=== PATIENT | female | born 1930 | race Caucasian/White ===

== ENCOUNTER 2017-01-06 15:42 | Emergency (ER) | payer MEDICARE, BC ==
[~2017-01-06] VITALS: Ht 167.6 cm; Wt 90.0 kg
[~2017-01-06 15:42] MED LIST: ASPI81TA81 PO; CALC0.25 PO; DETR2CAP PO; HYDR25TA35 PO; LACTCAP8 PO; PHEN1LIQ60 PO; TAZT300C PO; ZOCO10TA PO; ZOSTINJ SQ
[2017-01-06 15:44] VITALS: BP 132/60; PULSE 82; RESP 24; TEMP 98.1; O2SAT 94
--- NOTE | 2017-01-06 17:18 | RADRPT ---
EXAM DATE/TIME: 01/06/2017 16:37 [facility] COMPARISON: No previous studies available for comparison. INDICATIONS : Right hip pain from fall RADIATION DOSE: 20.56 CTDIvol (mGy) MEDICAL HISTORY : Cardiovascular disease. Hypertension. Pancreatitis.Renal cancer. SURGICAL HISTORY : Cholecystectomy. Nephrectomy, left. ENCOUNTER: Initial ACUITY: 1 day PAIN SCALE: 4/10 LOCATION: Right hip TECHNIQUE: Volumetric scanning of the hip was performed. Using automated exposure control and adjustment of the mA and/or kV according to patient size, radiation dose was kept as low as reasonably achievable to o btain optimal diagnostic quality images. FINDINGS: BONES: No evidence of fracture. Alignment is within normal limits. JOINTS: No evidence of joint narrowing or effusion. 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 There is mild to moderate stenosis at the L4-L5 and L5-S1 levels SOFT TISSUES: Muscles, tendons and neurovascular structures are grossly unremarkable. No evidence of mass, organize d fluid collection, or foreign body. Aortic stent graft is present CONCLUSION: 1. There is no evidence of acute fracture. 2. Mild to moderate stenosis at L4-L5 and L5-S1 Pablo Spencer MD on January 06, 2017 at 17:13 Board Certified Radiologist. This report was verified electronically.
--- NOTE | 2017-01-06 17:20 | PD ---
HPI Chief Complaint: Fall Time Seen by Provider: 16:03 Travel History International Travel<30 days: No Contact w/Intl Traveler<30days: No Traveled to known affect area: No History of Present Illness HPI 86 yo woman who presents to the ER complaining or right hip pain. SHe endorses a fall. She lives at home with family. THey did not hear or witness a fall. Symptoms started about 2-3 days ago. THey went to urgent care where they had an xray that showed possible right hip fracture, sent in for CT. History Past Medical History Narrative Medical heart prob kidney disease htn memory problems Tetanus Vaccination: > 5 Years Influenza Vaccination: Yes Menopausal: Yes Social History Alcohol Use: No Tobacco Use: No Allergies-Medications (Allergen,Severity, Reaction): Coded Allergies: No Known Allergies (Unverified , 01/06/17) Reported Meds & Prescriptions Reported Meds & Active Scripts Active Detrol LA (Tolterodine Tartrate) 2 Mg Cap 2 Mg PO DAILY Hydralazine (Hydralazine HCl) 25 Mg Tab 50 Mg PO TID Take with a meal. HOLD if systolic BP < 130 Reported Aspir-81 (Aspirin) 81 Mg Tabdr 1 Tab PO DAILY Calcitriol 0.25 Mcg Cap 0.25 Mcg PO DAILY Zocor (Simvastatin) 10 Mg Tab 10 Mg PO DAILY Taztia Xt (Diltiazem ER 24 HR) 300 Mg Caper 300 Mg PO DAILY Review of Systems Except as stated in HPI: all other systems reviewed are Neg Physical Exam Narrative GENERAL: Well-appearing 86-year-old woman, no acute distress. SKIN: Focused skin assessment warm/dry. CARDIOVASCULAR: Regular rate and rhythm. No murmur appreciated. RESPIRATORY: No accessory muscle use. Clear to auscultation. Breath sounds equal bilaterally. GASTROINTESTINAL: Abdomen soft, non-tender, nondistended. Hepatic and splenic margins not palpable. MUSCULOSKELETAL: No obvious deformities. Right hip taken to the full range of motion without any significant discomfort or limitation. No palpable tenderness. NEUROLOGICAL: Awake and alert. No obvious cranial nerve deficits. Motor grossly within normal limits. Normal speech. PSYCHIATRIC: Appropriate mood and affect; insight and judgment normal. Data Data Last Documented VS Vital Signs Date Time Temp Pulse Resp B/P Pulse Ox O2 Delivery O2 Flow Rate FiO2 01/06/17 16:01 16 99 Room Air 01/06/17 15:44 98.1 82 132/[address] Hip W/O Contrast (01/06/17 ) MDM Medical Decision Making Medical Screen Exam Complete: Yes Emergency Medical Condition: Yes Interpretation(s) CT right hip: No fracture. Mild to moderate stenosis at L4-L5, L5-S1. Differential Diagnosis Right hip fracture, contusion, other Narrative Course Medical decision making INITIAL: Is showing presents emergency department complaining of right pain, possible fracture on outpatient imaging, looks otherwise well. Exam is remarkably normal. He states she has more pain when she tries to ambulate. We' ll check CT. Diagnosis Primary Impression: Right hip pain Additional Instructions: Follow-up with your primary doctor if symptoms persist beyond one to 2 days. Use Tylenol if needed for pain. Return to the emergency department for any new or worsening symptoms. Med/Other Pt SpecificInfo: No Change to Meds Disposition: 01 DISCHARGE HOME Condition: Stable Tyrel Adams MD January 06, 2017 17:19
[2017-01-06 17:40] VITALS: BP 126/81; TEMP 97.8
[2017-01-25] MEDS ORDERED: TRAM50TA PO ×2 (11:36→11:37)
== END 2017-01-06 17:40 | disposition home or self-care (01) ==
LOC: NEPC 15:42
DX: M25.551 Pain in right hip (principal); I10 Essential (primary) hypertension; N28.9 Disorder of kidney and ureter, unspecified; Z86.79 Personal history of other diseases of the circulatory system; W19.XXXA Unspecified fall, initial encounter
CPT/HCPCS: 73700

== ENCOUNTER 2017-01-08 22:14 | Observation (INO) | payer MEDICARE, BC ==
[~2017-01-08] VITALS: Ht 165.1 cm; Wt 85.7 kg
[~2017-01-08 22:14] MED LIST changes: -LACTCAP8 PO; -PHEN1LIQ60 PO
[2017-01-08 22:16] VITALS: BP 139/65; PULSE 69; RESP 16; TEMP 97.6; O2SAT 98
[2017-01-08 22:46] VITALS: BP 129/61; PULSE 62; RESP 18; O2SAT 96
--- NOTE | 2017-01-08 22:55 | PD ---
HPI Chief Complaint: Altered Mental Status Time Seen by Provider: 22:51 Travel History International Travel<30 days: No Contact w/Intl Traveler<30days: No Traveled to known affect area: No History of Present Illness HPI 86-year-old female with history of previous kidney cancer status post nephrectomy, stage IV kidney disease, hypertension, AAA, COPD, presents to the ER today brought in by her family because she is looking more disoriented this evening. Her son states that she was wandering around, did not want know where she was. The symptoms seems to have subsided by time she got to the ER. She is currently denying a chest pains, trouble breathing, fevers, vomiting, abdominal pains, shortness of breath, or any other issues. They deny any new medications. Modifying Factors: None Associated Signs & Symptoms: Disorientation episode Risk Factors: Elderly PFSH Past Medical History AAA: Yes Arthritis: Yes (BACK AND KNEE) Autoimmune Disease: No Cancer: Yes (left kidney cancer- removed) Cardiovascular Problems: Yes High Cholesterol: Yes (controlled on meds) Chemotherapy: No Chest Pain: Yes Congestive Heart Failure: No COPD: Yes Diabetes: No Diminished Hearing: No Gastrointestinal Disorders: Yes Genitourinary: Yes Hypertension: Yes Immune Disorder: No Medical other: Yes (stage IV kidney disease) Musculoskeletal: Yes Neurologic: Yes (MEMORY LOSS) Psychiatric: No Reproductive: No Respiratory: No Integumentary: No Pancreatitis: Yes Pneumonia: Yes Radiation Therapy: No Renal Failure: Yes (stage [address] Joyner) Seizures: No Thyroid Disease: No Tetanus Vaccination: < 5 Years Influenza Vaccination: Yes Menopausal: Yes Past Surgical History Abdominal Aneurysm Repair: Yes Abdominal Surgery: Yes Cardiac Surgery: Yes (abd anurysm 2007) Cholecystectomy: Yes Eye Surgery: Yes (lasik surgery both eyes) Gynecologic Surgery: No Joint Replacement: Yes Other Surgery: Yes (Lt kidney due to CA) Family History Family Hypercholesterolemia: Yes (DAUGHTER) Social History Alcohol Use: No Tobacco Use: No (35 yrs ago) Substance Use: No Allergies-Medications (Allergen,Severity, Reaction): Coded Allergies: No Known Allergies (Unverified , 01/06/17) Reported Meds & Prescriptions Reported Meds & Active Scripts Active Detrol LA (Tolterodine Tartrate) 2 Mg Cap 2 Mg PO DAILY Hydralazine (Hydralazine HCl) 25 Mg Tab 50 Mg PO TID Take with a meal. HOLD if systolic BP < 130 Reported Aspir-81 (Aspirin) 81 Mg Tabdr 1 Tab PO DAILY Calcitriol 0.25 Mcg Cap 0.25 Mcg PO DAILY Zocor (Simvastatin) 10 Mg Tab 10 Mg PO DAILY Taztia Xt (Diltiazem ER 24 HR) 300 Mg Caper 300 Mg PO DAILY Review of Systems Except as stated in HPI: all other systems reviewed are Neg Physical Exam Narrative GENERAL: Well-developed pleasant elderly white female patient who currently is not in acute distress. Awake, alert, oriented 3. SKIN: Focused skin assessment warm/dry. HEAD: Atraumatic. Normocephalic. EYES: Pupils equal and round. No scleral icterus. No injection or drainage. ENT: No nasal bleeding or discharge. Mucous membranes pink and moist. NECK: Trachea midline. No JVD. CARDIOVASCULAR: Regular rate and rhythm. No murmur appreciated. RESPIRATORY: No accessory muscle use. Clear to auscultation. Breath sounds equal bilaterally. GASTROINTESTINAL: Abdomen soft, non-tender, nondistended. Hepatic and splenic margins not palpable. MUSCULOSKELETAL: No obvious deformities. No clubbing. No cyanosis. No edema. NEUROLOGICAL: Awake and alert. No obvious cranial nerve deficits. Motor grossly within normal limits. Normal speech. PSYCHIATRIC: Appropriate mood and affect; insight and judgment normal. Data Data Last Documented VS Vital Signs Date Time Temp Pulse Resp B/P Pulse Ox O2 Delivery O2 Flow Rate FiO2 01/08/17 22:46 62 18 129/61 96 Room Air 01/08/17 22:16 97.6 Orders Electrocardiogram (01/08/17 22:51) Complete Blood Count With Diff (01/08/17 22:51) Comprehensive Metabolic Panel (01/08/17 22:51) Troponin I (01/08/17 22:51) Thyroid Stimulating Hormone (01/08/17 22:51) Urinalysis - C+S If Indicated (01/08/17 22:51) Ct Brain W/O Iv Contrast(Rout) (01/08/17 22:51) Blood Glucose (01/08/17 22:51) Ecg Monitoring (01/08/17 22:51) Iv Access Insert/Monitor (01/08/17 22:51) Oximetry (01/08/17 22:51) Sodium Chloride 0.9% Flush (Ns Flush) (01/08/17 23:00) Urine Culture (01/08/17 23:54) Admit Order (Ed Use Only) (01/09/17 01:19) Labs Laboratory Tests Test 01/08/17 01/08/17 23:02 23:54 White Blood Count 6.8 TH/MM3 Red Blood Count 4.14 MIL/MM3 Hemoglobin 12.1 GM/DL Hematocrit 37.0 % Mean Corpuscular Volume 89.5 FL Mean Corpuscular Hemoglobin 29.1 PG Mean Corpuscular Hemoglobin 32.6 % Concent Red Cell Distribution Width 13.8 % Platelet Count 148 TH/MM3 Mean Platelet Volume 9.6 FL Neutrophils (%) (Auto) 55.1 % Lymphocytes (%) (Auto) 25.1 % Monocytes (%) (Auto) 10.1 % Eosinophils (%) (Auto) 8.7 % Basophils (%) (Auto) 1.0 % Neutrophils # (Auto) 3.8 TH/MM3 Lymphocytes # (Auto) 1.7 TH/MM3 Monocytes # (Auto) 0.7 TH/MM3 Eosinophils # (Auto) 0.6 TH/MM3 Basophils # (Auto) 0.1 TH/MM3 CBC Comment DIFF FINAL Differential Comment Sodium Level 137 MEQ/L Potassium Level 3.7 MEQ/L Chloride Level 103 MEQ/L Carbon Dioxide Level 23.0 MEQ/L Anion Gap 11 MEQ/L Blood Urea Nitrogen 38 MG/DL Creatinine 2.13 MG/DL Estimat Glomerular Filtration 22 ML/MIN Rate Random Glucose 97 MG/DL Calcium Level 9.2 MG/DL Total Bilirubin 0.4 MG/DL Aspartate Amino Transf 14 U/L (AST/SGOT) Alanine Aminotransferase 17 U/L (ALT/SGPT) Alkaline Phosphatase 110 U/L Troponin I LESS THAN 0.02 NG/ML Total Protein 6.9 GM/DL Albumin 3.6 GM/DL Thyroid Stimulating Hormone 1.760 uIU/ML 3rd Gen Urine Color YELLOW Urine Turbidity CLEAR Urine pH 5.5 Urine Specific [place] 1.020 Urine Protein TRACE mg/dL Urine Glucose (UA) NEG mg/dL Urine Ketones NEG mg/dL Urine Occult Blood NEG Urine Nitrite NEG Urine Bilirubin NEG Urine Urobilinogen LESS THAN 2.0 MG/DL Urine Leukocyte Esterase SMALL Urine RBC 1 /hpf Urine WBC 1 /hpf Urine Squamous Epithelial 3 /hpf Cells Urine Bacteria RARE /hpf Urine Hyaline Casts 1 /lpf Microscopic Urinalysis Comment CATH-CULTURE IND MDM Medical Decision Making Medical Screen Exam Complete: Yes Emergency Medical Condition: Yes Medical Record Reviewed: Yes Interpretation(s) EKG shows NSR, no ST elevation or depression, and no arrhythmias. No significant T-wave inversions. Laboratory Tests Test 01/08/17 01/08/17 23:02 23:54 Platelet Count 148 TH/MM3 (150-450) Monocytes (%) (Auto) 10.1 % (0.0-8.0) Eosinophils (%) (Auto) 8.7 % (0.0-4.0) Eosinophils # (Auto) 0.6 TH/MM3 (0-0.4) Blood Urea Nitrogen 38 MG/DL (7-18) Creatinine 2.13 MG/DL (0.50-1.00) Estimat Glomerular Filtration 22 ML/MIN (>89) Rate Aspartate Amino Transf 14 U/L (15-37) (AST/SGOT) Troponin I LESS THAN 0.02 NG/ML (0.02-0.05) Urine Leukocyte Esterase SMALL (NEG) Urine Bacteria RARE /hpf (NONE) Last [address] 01/08/17 8051 Signed Impressions: Service Date/Time: Sunday, January 08, 2017 23:36 - CONCLUSION: 1. No acute findings. Cortical volume loss. Chronic white matter ischemic changes. Johan Montano MD Differential Diagnosis Altered mental status episodedehydration versus metabolic issues versus medication side effects versus TIA versus acute intracranial processes Narrative Course Patient has no current focal neurological deficits. She is not sure what happened. However, family states that she could not see for the episode and was disoriented. CT of the brain did not show any signs of acute intracranial processes. Lab work was otherwise unremarkable. At this point, my plan would be to admit her for further evaluation of altered mental status episode. Case was discussed with family practice resident service for admission. Diagnosis Primary Impression: Altered mental status Admitting Information Admitting Physician Requests: Admit Brooke Espinoza MD January 08, 2017 22:55
[2017-01-08] MEDS ORDERED: SODIUM CHLORIDE 0.9% FLUSH 5 ML FLUSH IV FLUSH PRN (23:00)
--- NOTE | 2017-01-08 23:43 | RADRPT ---
EXAM DATE/TIME: 01/08/2017 23:36 [facility] COMPARISON: No previous studies available for comparison. INDICATIONS : Altered mental status. RADIATION DOSE: 40.07 CTDIvol (mGy) MEDICAL HISTORY : Renal carcinoma. SURGICAL HISTORY : None. ENCOUNTER: Initial ACUITY: 1 day PAIN SCALE: 0/10 LOCATION: cranial TECHNIQUE: Multiple contiguous axial images were obtained of the head. Using automated exposure control and adj ustment of the mA and/or kV according to patient size, radiation dose was kept as low as reasonably a chievable to obtain optimal diagnostic quality images. FINDINGS: There is central and cortical atrophy with dilatation of ventricular and sulcal spaces. There is no parenchymal hemorrhage, acute infarction or mass lesion identified. There are no extra-axial fluid c ollections appreciated. The posterior fossa is unremarkable with midline fourth ventricle. The port ion of the orbits and paranasal sinuses visualized are unremarkable. CONCLUSION: 1. No acute findings. Cortical volume loss. Chronic white matter ischemic changes. Johan Montano MD on January 08, 2017 at 23:41 Board Certified Radiologist. This report was verified electronically.
[2017-01-09] VITALS (11 sets, daily range): BP systolic 136–181; BP diastolic 63–79; PULSE 62–69; RESP 18–19; TEMP 95–97.8; O2SAT 91–97
[2017-01-09 00:12] LABS: BACTERIA, URINE RARE /hpf; BLOOD, URINE NEG (NEG); GLUCOSE,URINE NEG (NEG); HYALINE CAST, URINE 1 /lpf (RARE); KETONE, URINE NEG (NEG); NITRITE,URINE NEG (NEG); PH, URINE 5.5 (5.0-8.5); SQUAMOUS EPITHELIAL CELL URINE 3 /hpf (0-5); URINE COLOR YELLOW (YELLW/STRAW)
[2017-01-09 00:13] LABS: COMMENT (UR) CATH-CULTURE IND; CULTURE IF INDICATED CATH CULTURE IND
[2017-01-09 00:14] LABS: AUTOMATED NEUTROPHIL # 3.8 TH/MM3 (1.8-7.7); BASOPHIL # 0.1 TH/MM3 (0-0.2); EOSINOPHIL # 0.6 TH/MM3 (0-0.4); EOSINOPHIL % 8.7 % (0.0-4.0); HEMO FLAGS DIFF FINAL; LYMPH % 25.1 % (9.0-44.0); LYMPHOCYTE # 1.7 TH/MM3 (1.0-4.8); MEAN CELL VOLUME 89.5 FL (80.0-100.0); MEAN CORPUSCULAR HEMOGLOBIN 29.1 PG (27.0-34.0); MEAN CORPUSCULAR HGB CONC 32.6 % (32.0-36.0); MONO % 10.1 % (0.0-8.0); NEUT % 55.1 % (16.0-70.0); PLATELET COUNT 148 TH/MM3 (150-450); RED BLOOD COUNT 4.14 MIL/MM3 (4.00-5.30); RED CELL DISTRIBUTION WIDTH 13.8 % (11.6-17.2); WHITE BLOOD COUNT 6.8 TH/MM3 (4.0-11.0)
[2017-01-09 00:25] LABS: ANION GAP 11 MEQ/L (5-15); AST (GOT) 14 U/L (15-37); BLOOD UREA NITROGEN 38 MG/DL (7-18); CHLORIDE 103 MEQ/L (98-107); GLOMERULAR FILTRATION RATE 22 ML/MIN (>89); POTASSIUM 3.7 MEQ/L (3.5-5.1); SODIUM (NA) 137 MEQ/L (136-145)
[2017-01-09 00:36] LABS: ALKALINE PHOSPHATASE 110 U/L (45-117); ALT (GPT) 17 U/L (10-53); TOTAL BILIRUBIN ADULT 0.4 MG/DL (0.2-1.0)
[2017-01-09] MEDS ORDERED: ASPIRIN 325 MG TAB PO ONE (02:00)
--- NOTE | 2017-01-09 02:08 | HHI.HP ---
[facility] Primary Care Physician Cain Krueger MD Admission Diagnosis AMS/TIA Diagnoses: International Travel<30 Days: No Contact w/Intl Traveler<30days: No Known Affected Area: No History of Present Illness Patient is an 86-year-old female with a PMH significant for A. fib, hypertension , COPD, CK-MB who presents after a 10 minute episode of bilateral vision loss at 10 PM on 01/08. History obtained from patient and her son. She is in bed at the onset of her symptoms, and reports bilateral blurry vision and disorientation. She is unsure if she had double vision. The son endorses that the patient stated "I can't see" was confused about where she was as well. The patient and patient's son deny any speech changes, focal weakness, or facial drooping. She has never had these symptoms before. The patient also denies any other symptoms such as chest pain, palpitations, shortness of breath at the time of symptoms as well as during interview. Prior to the episode, patient had a normal evening aside from a mild headache which was treated with Tylenol. The headache was not severe, are not new to her, and resolved with Tylenol. No syncope. Of note, patient was seen in the ED on 01/04 after possible fall affecting the right hip and knee. The son first noted the possible fall after the patient was complaining of pain in those areas, though a fall was unwitnessed and patient does not recall falling. She was seen at an urgent care prior to ED visit with initial concern for nondisplaced fracture. Patient was sent to the ED for CT of the hip to confirm fracture, which was not found on imaging. No labs were performed at that time. Patient sees Dr. Shepard (cardiology), [place] October 2016. No significant changes in management at that time. She also sees Dr. Joyner (nephrology). (Rakel Martinez MD R1) Review of Systems Constitutional: DENIES: Fatigue, Fever, Weight gain, Weight loss, Chills, Dizziness Eyes: COMPLAINS OF: Blurred vision, DENIES: Diplopia Ears, nose, mouth, throat: DENIES: Vertigo, Throat pain, Hoarseness, Toothache Respiratory: DENIES: Apneas, Cough, Snoring, Wheezing, Sputum production, Shortness of breath Cardiovascular: DENIES: Chest pain, Palpitations, Syncope Gastrointestinal: COMPLAINS OF: Diarrhea (on and off), DENIES: Abdominal pain , Black stools, Bloody stools, Constipation, Nausea, Vomiting, Difficulty Swallowing Genitourinary: COMPLAINS OF: Urinary incontinence (chronic), DENIES: Urinary frequency, Dysuria Musculoskeletal: DENIES: Muscle aches, Back pain, Neck pain Integumentary: DENIES: Pruritus, Rash Hematologic/lymphatic: DENIES: Bruising, Lymphadenopathy Neurologic: DENIES: Abnormal gait, Localized weakness Psychiatric: DENIES: Anxiety, Confusion, Mood changes, Depression, Hallucinations, Agitation (Rakel Martinez MD R1) Past Family Social History Past Medical History Atrial fibrillation First-degree heart block Hypertension 31 years COPD40 pack year history, quit 20 years ago Urinary incontinence Diverticulitis August 2016 CKD Past Surgical History Knee replacement bilateral Aortic aneurysm Renal cancerremoval left kidney 2009 Cholecystectomy, pancreatic pseudocyst drainage 04/2013 Reported Medications Tramadol when necessarylast use Wednesday Tylenol when necessary pain Reported Meds & Active Scripts Active Detrol LA (Tolterodine Tartrate) 2 Mg Cap 2 Mg PO DAILY Hydralazine (Hydralazine HCl) 25 Mg Tab 50 Mg PO TID Take with a meal. HOLD if systolic BP < 130 Reported Aspir-81 (Aspirin) 81 Mg Tabdr 1 Tab PO DAILY Calcitriol 0.25 Mcg Cap 0.25 Mcg PO DAILY Zocor (Simvastatin) 10 Mg Tab 10 Mg PO DAILY Taztia Xt (Diltiazem ER 24 HR) 300 Mg Caper 300 Mg PO DAILY (Rakel Martinez MD R1) Allergies: Coded Allergies: No Known Allergies (Unverified , 01/06/17) Family History Father: Heart attack age 68 Mother: natural causes Sister: Brain tumor Children: Healthy Social History Retired secretary book keeper Lives with son and daughter Tobacco: Quit 20 years ago, [id number] history EtOH: Occasional Illicit: Denies Ambulatory with occasional use of cane (Rakel Martinez MD R1) Physical Exam Vital Signs Vital Signs Date Time Temp Pulse Resp B/P Pulse Ox O2 Delivery O2 Flow Rate FiO2 01/08/17 22:46 62 18 129/61 96 Room Air 01/08/17 22:16 97.6 69 16 139/65 98 Physical Exam GENERAL: Patient is an elderly female wearing glasses, lying in bed in no apparent distress. She is alert, pleasant, joking. Son and daughter at bedside. SKIN: Warm and dry. No obvious rashes, ecchymoses, or lesions. HEAD: Normocephalic. No evidence of trauma. EYES: Pupils equal and round. No scleral icterus. No injection or drainage. ENT: No nasal bleeding or discharge. Mucous membranes pink and moist. Uvula midline, tonsils normal in appearance without exudate. View of bilateral TMs obscured by cerumen. NECK: Trachea midline. No JVD. Normal range of motion. No carotid bruits noted. CARDIOVASCULAR: Regular rate and rhythm, bradycardic mildly. Distant to auscultation. No obvious murmurs. RESPIRATORY: No accessory muscle use. Clear to auscultation bilaterally. Breath sounds equal bilaterally. GASTROINTESTINAL: Abdomen soft, non-tender, nondistended. Normal bowel sounds. Hepatic and splenic margins not palpable. MUSCULOSKELETAL: Extremities without clubbing, cyanosis, or edema. No obvious deformities. NEUROLOGICAL: Awake and alert. 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 No facial droop. Normal sensation light touch in distal extremities bilaterally. No pronator drift. Motor grossly within normal limits. Five out of 5 muscle strength in the arms and legs. Normal speech. Gait slow, no obvious imbalance with assistance short-distance walk. PSYCHIATRIC: Appropriate mood and affect; insight and judgment normal. Laboratory Laboratory Tests Test 01/08/17 01/08/17 23:02 23:54 White Blood Count 6.8 Red Blood Count 4.14 Hemoglobin 12.1 Hematocrit 37.0 Mean Corpuscular Volume 89.5 Mean Corpuscular Hemoglobin 29.1 Mean Corpuscular Hemoglobin 32.6 Concent Red Cell Distribution Width 13.8 Platelet Count 148 Mean Platelet Volume 9.6 Neutrophils (%) (Auto) 55.1 Lymphocytes (%) (Auto) 25.1 Monocytes (%) (Auto) 10.1 Eosinophils (%) (Auto) 8.7 Basophils (%) (Auto) 1.0 Neutrophils # (Auto) 3.8 Lymphocytes # (Auto) 1.7 Monocytes # (Auto) 0.7 Eosinophils # (Auto) 0.6 Basophils # (Auto) 0.1 CBC Comment DIFF FINAL Differential Comment Sodium Level 137 Potassium Level 3.7 Chloride Level 103 Carbon Dioxide Level 23.0 Anion Gap 11 Blood Urea Nitrogen 38 Creatinine 2.13 Estimat Glomerular Filtration 22 Rate Random Glucose 97 Calcium Level 9.2 Total Bilirubin 0.4 Aspartate Amino Transf 14 (AST/SGOT) Alanine Aminotransferase 17 (ALT/SGPT) Alkaline Phosphatase 110 Troponin I LESS THAN 0.02 Total Protein 6.9 Albumin 3.6 Thyroid Stimulating Hormone 1.760 3rd Gen Urine Color YELLOW Urine Turbidity CLEAR Urine pH 5.5 Urine Specific White 1.020 Urine Protein TRACE Urine Glucose (UA) NEG Urine Ketones NEG Urine Occult Blood NEG Urine Nitrite NEG Urine Bilirubin NEG Urine Urobilinogen LESS THAN 2.0 Urine Leukocyte Esterase SMALL Urine RBC 1 Urine WBC 1 Urine Squamous Epithelial 3 Cells Urine Bacteria RARE Urine Hyaline Casts 1 Microscopic Urinalysis Comment CATH-CULTURE IND Date/Time Procedure Status Source Growth 01/08/17 23:54 Urine Culture Received Urine Catheterized Urine Pending (Rakel Martinez MD R1) Result Diagram: 01/08/17230101/08/172301 Imaging Last Impressions Head CT 01/08/172250 Signed Impressions: Service Date/Time: Sunday, January 08, 2017 23:36 - CONCLUSION: 1. No acute findings. Cortical volume loss. Chronic white matter ischemic changes. Johan Montano MD (Rakel Martinez MD R1) Assessment and Plan Assessment and Plan 86-year-old female with hypertension, A. fib, history of aortic aneurysm repair who presents with transient loss of vision concerning for TIA versus stroke. She 'll be admitted to observation for further workup. Code Status No code DNR confirmed 01/09 at bedside with patient, son, daughter Discussed Condition With Seen and discussed with Dr. Fernando Martinez (Rakel Martinez MD R1) Attending Attestation Patient seen and examined, discussed with resident team. I agree with assessment and management as documented and discussed with me. Khurram Armneta is a pleasant 86yo lady admitted for symptoms attributed to TIA after developing blurry vision last night as well as altered mental status. Patient is seen around 4PM today, and reports she is feeling fine. Her son is at bedside who reports she is at baseline. Pt denies any blurry vision (resolved), chest pain, SOB, palpitations, weakness , R hip pain. She denies abdominal pain, dysuria, hematuria, n/v, back pain. Additional physical exam findings: No pain at temporal arteries. No pain with log roll of R leg. Additional diagnoses: UTI: Initiate PO antibiotics. This may be the etiology of her symptoms. Will follow up culture/sensitivities after discharge. Thrombocytopenia: Mild. No obvious active bleeding. Hemodynamically stable. This can be further evaluated as an outpatient. (Karlee Mcmullen MD) Problem List: (1) TIA (transient ischemic attack) Status: Acute Plan: Patient with history of A. fib and hypertension presents after transient loss of vision at 10 PM on 01/08 lasting 10 minutes. Clinical exam is unremarkable. CT scan performed showing chronic volume loss and white matter changes, no bleed. Admit for further workup of TIA given patient does have vascular risk factors (age, hypertension, A. fib, history of smoking, hyperlipidemia) suggesting high risk for stroke development. ABCD2 score is 2. [id number] Score is 6, signifying 9.7% per year stroke risk, 13.6% risk of stroke/TIA/systemic embolism HAS BLED score is 3, signifying 5.8% risk of bleeding (high risk for major bleeding) Plan: * CT was negative for bleeding. * Ordered MRI brain to r/o ischemic stroke. * MRA brain and carotids ordered. * EKG significant for sinus bradycardia, pressure or heart block, but does not show evidence of atrial fibrillation or infarct. * Trending cardiac enzymes and EKG, initial troponin negative * 2D ECHO ordered for the AM to look for potential wall vegetations. * Status post aspirin 325 mg x1, will continue home dose aspirin 325 mg daily * Patient is on pravastatin 10 mg daily at home, will continue, may require higher dose. Lipid panel is pending * Neuro checks q4 hrs. * Cardiac telemetry * Out of bed with assist * Consult PT/OT/ST and case management. * If pt passes bedside swallow, will allow for heart healthy diet. (2) Altered mental status Status: Acute Plan: Suspect transient AMS related to possible TIA. Asymptomatic, afebrile. Urine culture is pending, will defer treatment and monitor cultures unless patient becomes symptomatic. Patient also has an element of chronic dementia Electrolytes within normal limits, aside from magnesium and phosphorus which is pending -Ddx includes infection, polypharmacy, electrolyte disturbance, frailty, arrythmia, carotid artery stenosis, intoxication, stroke, seizure, vs other. No fever or neck stiffness so meningitis lower on ddx. Plan: * No CXR ordered given no respiratory symptoms * UA showing normal specific gravity, small leukocyte esterase and rare bacteria , only 1 WBC. No dysuria. * Workup as above for TIA in addition to TSH, B1, B12, magnesium, phosphate * No evidence of dehydration on exam * No report of seizure like activity. Consider EEG if condition changes. * Neuro checks Q4. Fall precautions. * Nurse to perform bedside swallow study * Consider neuro consult in the AM * Holding pharmacotherapy for agitation as patient does not appear to be agitated * Patient has glasses, dentures, and does not use hearing aids (3) CKD (chronic kidney disease) stage 4, GFR 15-29 ml/min Status: Chronic Plan: Patient is status post left nephrectomy 2009 for renal cancer. Chronic CKD stage IV, creatinine has been 1.52.5 since 2011. Most recent creatinine documented in EMR is 1.70 in July 2016. Plan: * Isotonic maintenance IV fluids given and patient will get IV contrast for TIA workup * Will monitor symptoms and urine output closely * Renally dose medications * Avoid nephrotoxins (4) Hypertension Status: Chronic Plan: Patient is on hydralazine 50mg TID at home, will continue (5) Right hip pain Status: Acute Plan: Patient possibly sustained a fall on 01/04, unwitnessed, seen in ED with negative imaging studies. Patient is taking Tylenol and occasional tramadol at home, does not complain of pain today. Clinical exam is unremarkable. Plan: * Physical therapy as above * Tylenol as needed for pain * Calcitriol at home dose of 0.25 mcg daily (6) atrial fibrillation Status: Chronic Plan: Per history. Patient is on Cardizem 300 mg daily, will continue. She also takes aspirin 81 mg daily, will continue, may require higher dose given current TIA workup and risk scores documented above (7) Dementia Status: Chronic Plan: Per son, chronic dementia. No acute change today. Management as above, may benefit from neurology consult as outpatient. (8) Urinary incontinence Status: Chronic Plan: Patient is on Detrol LA 2 mg daily at home. Will hold at this time given it has known side effects of headache, dizziness, and drowsiness. (9) Fluids/Electrolytes/Nutrition/Prophylaxis Status: Acute Plan: Fluids: NS @ 125ml/hr given CKD, MRI/MRA ordered, urine showing trace protein Electrolytes: monitor and replete as needed Nutrition: Nothing by mouth, heart healthy after bedside swallow study DVT Prophylaxis: Heparin 5000U subQ q12hr/bilateral SCDs GI Prophylaxis: Not indicated (Rakel Martinez MD R1) Rakel Martinez MD R1 January 09, 2017 02:08 Karlee Mcmullen MD January 09, 2017 20:19
[2017-01-09] MEDS ORDERED: GLUCAGON 1 MG/ML VIAL OTHER PRN (02:45)
[2017-01-09] MEDS ORDERED: ENALAPRILAT 1.25 MG/ML VIAL IV PRN (02:45)
[2017-01-09] MEDS ORDERED: SODIUM CHLORIDE 0.9% FLUSH 5 ML FLUSH IV FLUSH PRN (02:45)
[2017-01-09] MEDS ORDERED: DEXTROSE 50% IN WATER 50 ML VIAL(D50) IV PUSH PRN (02:45)
[2017-01-09 03:37] LABS: APTT (PATIENT) 29.5 SEC (24.3-30.1); INTERNATIONAL NORMALIZED RATIO 0.9 RATIO; PROTHROMBIN TIME - PATIENT 9.6 SEC (9.8-11.6)
[2017-01-09] MEDS: SODIUM CHLOR 0.9% 1000 ML INJ 1,000 ML IV SCH ×3 (03:44→18:09)
[2017-01-09] MEDS ORDERED: SENNOSIDES 8.6 MG TAB PO PRN (04:00)
[2017-01-09] MEDS ORDERED: ACETAMINOPHEN 325 MG TAB PO PRN (04:00)
[2017-01-09 05:20] LABS: CREATINE KINASE 35 U/L (26-192)
[2017-01-09] MEDS: INSULIN ASPART SUPPLEMENTAL SCALE SQ SCH ×3 (06:34→16:00)
[2017-01-09] MEDS ORDERED: DILTIAZEM-CD 300 MG CAP ER PO SCH (09:00)
[2017-01-09] MEDS ORDERED: PRAVASTATIN SOD 20 MG TAB PO SCH (09:00)
[2017-01-09] MEDS ORDERED: ASPIRIN EC 81 MG TABEC PO SCH (09:00)
[2017-01-09] MEDS ORDERED: CALCITRIOL 0.25 MCG CAP PO SCH (09:00)
[2017-01-09] MEDS ORDERED: SODIUM CHLORIDE 0.9% FLUSH 5 ML FLUSH IV FLUSH SCH (09:00)
[2017-01-09] MEDS ORDERED: HEPARIN SODIUM - SQ 10,000 UNITS/ML VIAL SQ SCH (09:00)
--- NOTE | 2017-01-09 09:24 | HHI.FPPN ---
Subjective Remarks Patient remains confused. She is unsure why she is here. She does feel well however. She would like to go home if possible. Denies chest pain, nausea, vomiting, shortness of breath. Objective Vitals Vital Signs Date Time Temp Pulse Resp B/P Pulse Ox O2 Delivery O2 Flow Rate FiO2 01/09/17 07:54 95.6 66 19 142/69 91 01/09/17 04:05 62 01/09/17 03:58 97.8 62 18 151/68 97 01/09/17 02:07 62 18 137/64 96 01/09/17 02:07 59 18 96 Room Air 01/08/17 22:46 62 18 129/61 96 Room Air 01/08/17 22:16 97.6 69 16 139/65 98 I/O 01/08/17 01/08/17 01/08/17 01/09/17 01/09/17 01/09/17 06:59 14:59 22:59 06:59 14:59 22:59 Intake Total 725 ml Balance 725 ml Intake IV Total 725 ml # Voids 1 Result Diagram: 01/08/17 2302 01/08/172301 Objective Remarks GENERAL: Patient is an elderly female wearing glasses, lying in bed in no apparent distress. She is alert, pleasant SKIN: Warm and dry. No obvious rashes, ecchymoses, or lesions. HEAD: Normocephalic. No evidence of trauma. EYES: Pupils equal and round. No scleral icterus. No injection or drainage. NECK: Trachea midline. No JVD. Normal range of motion. No carotid bruits noted. CARDIOVASCULAR: Regular rate and rhythm, bradycardic mildly. Distant to auscultation. No obvious murmurs. RESPIRATORY: No accessory muscle use. Clear to auscultation bilaterally. Breath sounds equal bilaterally. GASTROINTESTINAL: Abdomen soft, non-tender, nondistended. Normal bowel sounds. Hepatic and splenic margins not palpable. MUSCULOSKELETAL: Extremities without clubbing, cyanosis, or edema. No obvious deformities. NEUROLOGICAL: Awake and alert. supervisor endless track vehicle II through XII intact. No facial droop. Normal sensation light touch in distal extremities bilaterally. No pronator drift. Motor grossly within normal limits. Five out of 5 muscle strength in the arms and legs. Normal speech. Gait slow, no obvious imbalance with assistance short-distance walk. Able to count backwards from July to March without problems, unable to give further. Anuj a clock correctly to 3 PM. PSYCHIATRIC: Appropriate mood and affect; insight and judgment normal. A/P Assessment and Plan 86-year-old female with hypertension, A. fib, history of aortic aneurysm repair who presents with transient loss of vision concerning for TIA versus stroke. She 'll be admitted to observation for further workup. Discharge Planning Pending MRI and neurology consultation. Problem List: (1) TIA (transient ischemic attack) Status: Acute Plan: Patient with history of A. fib and hypertension presents after transient loss of vision at 10 PM on 01/08 lasting 10 minutes. Clinical exam is unremarkable. CT scan performed showing chronic volume loss and white matter changes, no bleed. Admit for further workup of TIA given patient does have vascular risk factors (age, hypertension, A. fib, history of smoking, hyperlipidemia) suggesting high risk for stroke development. ABCD2 score is 2. [id number] Score is 6, signifying 9.7% per year stroke risk, 13.6% risk of stroke/TIA/systemic embolism HAS BLED score is 3, signifying 5.8% risk of bleeding (high risk for major bleeding) Plan: * Neurology consult * CT was negative for bleeding. * Ordered MRI brain to r/o ischemic stroke. * MRA brain and carotids ordered. * EKG significant for sinus bradycardia, pressure or heart block, but does not show evidence of atrial fibrillation or infarct. * Trending cardiac enzymes and EKG, initial troponin negative * 2D ECHO ordered for the AM to look for potential wall vegetations. * Status post aspirin 325 mg x1, will continue home dose aspirin 325 mg daily * Patient is on pravastatin 10 mg daily at home, will continue, may require higher dose. Lipid panel is pending * Neuro checks q4 hrs. * Cardiac telemetry * Out of bed with assist * Consult PT/OT/ST and case management. * If pt passes bedside swallow, will allow for heart healthy diet. (2) Altered mental status Status: Acute Plan: Suspect transient AMS related to possible TIA. Patient also has an element of chronic dementia Electrolytes within normal limits Continue to monitor (3) CKD (chronic kidney disease) stage 4, GFR 15-29 ml/min Status: Chronic Plan: Patient is status post left nephrectomy 2009 for renal cancer. Chronic CKD stage IV, creatinine has been 1.52.5 since 2011. Most recent creatinine documented in EMR is 1.70 in July 2016. Plan: * Isotonic maintenance IV fluids given and patient will get IV contrast for TIA workup * Will monitor symptoms and urine output closely * Renally dose medications * Avoid nephrotoxins (4) Hypertension Status: Chronic Plan: Patient is on hydralazine 50mg TID at home, will continue (5) Right hip pain Status: Acute Plan: Patient possibly sustained a fall on 01/04, unwitnessed, seen in ED with negative imaging studies. Patient is taking Tylenol and occasional tramadol at home, does not complain of pain today. Clinical exam is unremarkable. Plan: * Physical therapy as above * Tylenol as needed for pain * Calcitriol at home dose of 0.25 mcg daily (6) atrial fibrillation Status: Chronic Plan: Per history. Patient is on Cardizem 300 mg daily, will continue. She also takes aspirin 81 mg daily, will continue, may require higher dose given current TIA workup and risk scores documented above (7) Dementia Status: Chronic Plan: Per son, chronic dementia. No acute change today. Management as above, may benefit from neurology consult as outpatient. (8) Urinary incontinence Status: Chronic Plan: Patient is on Detrol LA 2 mg daily at home. Will hold at this time given it has known side effects of headache, dizziness, and drowsiness. (9) Fluids/Electrolytes/Nutrition/Prophylaxis Status: Acute Plan: Fluids: NS @ 125ml/hr given CKD, MRI/MRA ordered, urine showing trace protein Electrolytes: monitor and replete as needed Nutrition: Nothing by mouth, heart healthy after bedside swallow study DVT Prophylaxis: Heparin 5000U subQ q12hr/bilateral SCDs GI Prophylaxis: Not indicated Cain Krueger MD R2 January 09, 2017 09:24 may benefit from neurology consult as outpatient. (8) Urinary incontinence Status: Chronic Plan: Patient is on Detrol LA 2 mg daily at home. Will hold at this time given it has known side effects of headache, dizziness, and drowsiness. (9) Fluids/Electrolytes/Nutrition/Prophylaxis Status: Acute Plan: Fluids: NS @ 125ml/hr given CKD, MRI/MRA ordered, urine showing trace protein Electrolytes: monitor and replete as needed Nutrition: Nothing by mouth, heart healthy after bedside swallow study DVT Prophylaxis: Heparin 5000U subQ q12hr/bilateral SCDs GI Prophylaxis: Not indicated Cain Krueger MD R2 January 09, 2017 09:24
[2017-01-09] MEDS: hydrALAZINE HCL 50 MG TAB PO SCH ×3 (10:38→18:04)
[2017-01-09 13:42] LABS: MAGNESIUM 2.4 MG/DL (1.5-2.5)
[2017-01-09 13:43] LABS: CREATINE KINASE 32 U/L (26-192)
[2017-01-09 13:57] LABS: HEMOGLOBIN A1a 0.9 %; HEMOGLOBIN Ao 84.5 %; HEMOGLOBIN LA1C 2.3 %; HEMOGLOBIN P3 5.7 %
[2017-01-09] MEDS ORDERED: NITROFURANTOIN MONOHYD MACROCR 100 MG CAP PO SCH (15:00)
--- NOTE | 2017-01-09 15:44 | RADRPT ---
EXAM DATE/TIME: 01/09/2017 14:00 [facility] COMPARISON: No previous studies available for comparison. INDICATIONS : Confusion. MEDICAL HISTORY : Renal cell carcinoma. Hypertension. Renal insufficiency, chronic. SURGICAL HISTORY : Abdominal aortic aneurysm repair. Total knee replacement, left. Total knee replacement, right. Nephre ctomy. ENCOUNTER: Initial ACUITY: 1 day PAIN SCORE: 0/10 LOCATION: cranial TECHNIQUE: Multiplanar, multisequence MRI of the brain was performed without contrast. FINDINGS: CEREBRUM: Diffuse prominence of the ventricles, sulci, and cisterns indicating diffuse atrophy No evidence of m idline shift, mass lesion, hemorrhage or acute infarction. No extraaxial fluid collections are seen. The pituitary gland and suprasellar cistern are normal in configuration. WHITE MATTER: No significant signal abnormalities are seen in the white matter. POSTERIOR FOSSA: The cerebellum and brainstem are intact. The 4th ventricle is midline. The cerebellopontine angle is unremarkable. The cerebellar tonsils are normal in position. DIFFUSION IMAGING: No focal areas of restricted diffusion are seen. No evidence of acute infarction. EXTRACRANIAL: The visualized portions of the orbits and paranasal sinuses are unremarkable. CONCLUSION: Age-related findings. No acute intracranial findings. Luciano Ponce MD on January 09, 2017 at 15:41 Board Certified Radiologist. This report was verified electronically.
--- NOTE | 2017-01-09 15:49 | RADRPT ---
EXAM DATE/TIME: 01/09/2017 14:00 [facility] COMPARISON: No previous studies available for comparison. INDICATIONS : Confusion. Vision loss. MEDICAL HISTORY : Hypertension. Renal insufficiency, chronic. Carcinoma, renal SURGICAL HISTORY : Abdominal aortic aneurysm repair. Total knee replacement, left. Total knee replacement, right. Nephre ctomy. ENCOUNTER: Initial ACUITY: 1 day PAIN SCORE: 0/10 LOCATION: cranial Please note a normal MRA of the brain does not entirely exclude the possibility of a small aneurysm, nor the possibility of distal intracranial vessel disease. TECHNIQUE: 3D time of flight MRA was performed. Source images, multiplanar STS MIP, and 3D volume MIP reconstru ctions were reviewed. FINDINGS: There is a prominent left posterior commuting artery feeding the left DENTAL RESIDENT. Absent P1 segment of the l eft DENTAL RESIDENT. This is a normal variant. No evidence of aneurysm or high-grade stenosis. Mild diffuse irreg ularity suggesting diffuse atherosclerotic disease. CONCLUSION: No evidence of aneurysm or high-grade stenosis. Luciano Ponce MD on January 09, 2017 at 15:43 Board Certified Radiologist. This report was verified electronically.
--- NOTE | 2017-01-09 16:11 | RADRPT ---
EXAM DATE/TIME: 01/09/2017 14:43 [place] COMPARISON: No previous studies available for comparison. INDICATIONS : Cerebrovascular accident. MEDICAL HISTORY : Aneurysm, abdominal. Hypercholesterolemia. Hypertension. COPD. Pancreatitis. Left kidney cancer. SURGICAL HISTORY : Cholecystectomy. Nephrectomy, left. ENCOUNTER: Initial ACUITY: 1 day PAIN SCORE: 2/10 LOCATION: Bilateral neck PEAK SYSTOLIC VELOCITIES (cm/sec): ICA/CCA RATIO: Right: 1.4 Left: 1.0 ICA: Right: 91 Left: 132 CCA: Right: 128 Left: 131 ECA: Right: 113 Left: 116 VERTEBRAL: Right: 108 antegrade Left: 60 antegrade Elevated flow velocities and ICA/CCA ratios have been found to correlate with increased degrees of vessel stenosis, calculated as percentage of diameter relative to a normal segment of distal ICA/CCA FINDINGS: RIGHT CAROTID: There is mild plaque of the carotid bulb region. No significant stenosis is visualized. The waveform s are within normal limits. LEFT CAROTID: There is plaque at the carotid bulb and proximal internal carotid artery. There is slight elevation o f the peak systolic velocities in the left ICA and CCA. No significant stenosis is visualized on the grayscale images. The waveforms are within normal limits. VERTEBRAL ARTERIES: Antegrade flow is seen in both vertebral arteries. MISCELLANEOUS: None. CONCLUSION: Plaque in the carotid bulb regions bilaterally and at the left proximal internal artery with slight e levation of the peak side velocities at the left common carotid and internal carotid arteries. A mild stenosis cannot be ruled out on the left. Bryon Hernandez MD on January 09, 2017 at 16:06 Board Certified Radiologist. This report was verified electronically.
[2017-01-09] MEDS ORDERED: BACT400T PO (16:18)
--- NOTE | 2017-01-09 16:19 | HHI.DCPOC ---
Discharge Care Plan Diagnosis: (1) TIA (transient ischemic attack) (2) UTI (urinary tract infection) Goals to Promote Your Health * To prevent worsening of your condition and complications * To maintain your health at the optimal level Directions to Meet Your Goals Take your medications as prescribed Follow your dietary instruction Follow activity as directed Keep your appointments as scheduled Take your immunizations and boosters as scheduled If your symptoms worsen call your PCP, if no PCP go to Urgent Care Center or Emergency Room Smoking is Dangerous to Your Health. Avoid second hand smoke Call the 24-hour hour crisis hotline for domestic abuse at Cain Krueger MD R2 January 09, 2017 16:19
--- NOTE | 2017-01-09 16:20 | HHI.FF ---
Face to Face Verification Diagnosis: (1) TIA (transient ischemic attack) (2) UTI (urinary tract infection) Physical Therapy Order: Evaluate and Treat, Improve ambulation, Strength and gait training Home Health Nursing Order: Medical education Signs/symptoms of disease process I have seen patient Khurram Armenta on 01/09/17. My clinical findings support the need for the requested home health care services because: Ltd mobility - disease progression Deconditioned w/ increased weakness Med compliance is questionable Limited ability to care for self High risk of falls I certify that my clinical findings support that this patient is homebound because: Unsteady gait/balance Unsafe to leave home unassisted Cain Krueger MD R2 January 09, 2017 16:20
[2017-01-09] MEDS ORDERED: SULFAMETHOXAZOLE-TRIMETHOPRIM 400-80 MG TAB PO SCH (17:00)
--- NOTE | 2017-01-10 07:41 | EC ---
Study Study Date:01/09/2017 STUDY CONCLUSIONS SUMMARY - Left ventricle: The cavity size was normal. Wall thickness was at the upper limits of normal. Systolic function was normal. The estimated ejection fraction was in the range of 55% to 60%. Wall motion was normal; there were no regional wall motion abnormalities. - Aortic valve: Valve area: 2.28cm^2 (Vmax). - Mitral valve: Mild regurgitation. Impressions: No cardiac source of emboli was indentified. If LV function is below 40, please consider prescribing an ACEI or ARB or document rationale for non-use. PROCEDURE DATA STUDY STATUS: Elective. Procedure: Transthoracic echocardiography. Image quality was fair. Scanning was performed from the parasternal, apical, and subcostal acoustic windows. Study completion: The patient tolerated the procedure well. Transthoracic echocardiography. M-mode, complete 2D, complete spectral Doppler, and color Doppler. Height: Height: 66in. Weight: Weight: 188.6lb. Body mass index: BMI: 30.5kg/m^2. Body surface area: BSA: 1.95m^2. Patient status: Inpatient. CARDIAC ANATOMY LEFT VENTRICLE: The cavity size was normal. Wall thickness was at the upper limits of normal. Systolic function was normal. The estimated ejection fraction was in the range of 55% to 60%. Wall motion was normal; there were no regional wall motion abnormalities. AORTIC VALVE: Trileaflet; normal thickness leaflets. Doppler: Transvalvular velocity was within the normal range. There was no stenosis. No regurgitation. Valve area: 2.28cm^2 (Vmax). Indexed valve area: 1.17cm^2/m^2 (Vmax). Peak gradient: 11mm Hg (S). AORTA: Aortic root: The aortic root was normal in size. MITRAL VALVE: Structurally normal valve. Doppler: Transvalvular velocity was within the normal range. There was no evidence for stenosis. Mild regurgitation. Valve area by pressure half-time: 2.65cm^2. Indexed valve area by pressure half-time: 1.36cm^2/m^2. Peak gradient: 4mm Hg (D). LEFT ATRIUM: The atrium was normal in size. RIGHT VENTRICLE: The cavity size was normal. Wall thickness was normal. PULMONIC VALVE: Doppler: Transvalvular velocity was within the normal range. There was no evidence for stenosis. No regurgitation. TRICUSPID VALVE: Structurally normal valve. Doppler: Transvalvular velocity was within the normal range. No regurgitation. Peak gradient: 35mm Hg (D). PULMONARY ARTERY: The main pulmonary artery was normal-sized. Systolic pressure was within the normal range. RIGHT ATRIUM: The atrium was normal in size. PERICARDIUM: There was no pericardial effusion. SYSTEMIC VEINS: Inferior vena cava: The vessel was normal in size. Patient weight: 188.6lb _Ejection fraction:_ 65-75% _Fractional shortening:_ 32% up to 5Kg 5-11.5Kg 11.6-22.9Kg 23-45Kg 45-57Kg Aortic Root 7-13 <17 13-22 17-27 17-27 LA diam 6-13 <23 24-38 33-47 37-40 RVID 10-17 7-15 7-15 7-18 8-17 LVIDd 12-22 <32 24-38 33-47 37-40 LVPW 2-4 3-6 5-7 6-8 7-8 IVS 2-4 3-6 5-7 6-8 7-8 BASIC MEASUREMENTS ADULT NORMAL Left ventricle LV internal dimension, ED, chordal 50 mm 43-52 level, PLAX LV internal dimension, ES, chordal 30.4 mm 23-38 level, PLAX Fractional shortening, chordal level, 39 % >29 PLAX LV posterior wall thickness, ED 10.7 mm IVS/LVPW ratio, ED 0.99 <1.3 Volume, ED, MOD, 1-plane 83 ml Volume, ES, MOD, 1-plane 31 ml Ejection fraction, MOD, 1-plane 63 % Stroke volume, MOD, 1-plane 52 ml Volume index, ED, MOD, 1-plane 43 ml/m^2 Volume index, ES, MOD, 1-plane 16 ml/m^2 Stroke index, MOD, 1-plane 26.7 ml/m^2 Ventricular septum Septal thickness, ED 10.6 mm Aortic valve Leaflet separation 16 mm 15-26 Left atrium Anterior-posterior dimension 32 mm Anterior-posterior dimension index 1.64 cm/m^2 <2.2 Right ventricle RV internal dimension, ED, PLAX 22.3 mm 19-38 BASIC MEASUREMENTS ADULT NORMAL Aortic valve Leaflet separation 16 mm 15-26 Aorta Root diameter, ED 29 mm 20-37 DOPPLER MEASUREMENTS ADULT NORMAL Aortic valve Peak velocity, S 167 cm/s Peak gradient, S 11 mm Hg Valve area, Vmax 2.28 cm^2 Valve area index, Vmax 1.17 cm^2/m^2 Mitral valve Peak E-wave velocity 99.7 cm/s Peak A-wave velocity 129 cm/s Pressure half-time 83 ms Peak gradient, D 4 mm Hg Peak E/A ratio 0.8 Valve area, pressure half-time 2.65 cm^2 Valve area index, pressure half-time 1.36 cm^2/m^2 Tricuspid valve Peak gradient, D 35 mm Hg Maximal inflow velocity 296 cm/s Pulmonic valve Peak velocity, S 122 cm/s LEGEND: Mean values are shown as u=mean value. Asterisk (*) molina values outside specified normal range. Prepared and signed by Emilee Gilliam [id number]
--- NOTE | 2017-01-10 07:58 | MB ---
cc: JIN LANDERS MD DATE OF CONSULTATION: 01/09/2017 REASON FOR CONSULTATION: Possible stroke / TIA. HISTORY OF PRESENT ILLNESS Ms. Armenta is an 86-year-old female with a past medical history of atrial fibrillation, hypertension, COPD who is accompanied by her son, was brought to the emergency room after an episode of sudden bilateral visual loss on 01/08/2017. Most of the medical history is obtained from the son and medical records. The son states that they noticed over the past week that the patient became sluggish. No headache, slurred speech, disorientation, however, he states that she has had slow progressive decline in memory, tends to repeat sentences several times, "ten times repeats sentences." She has to be reminded to take a shower. She takes care of herself but she needs some assistance in showering. Sometimes she does not have full control of the bladder. She lives with her son. She uses a cane, sometimes a walker for stability but they noticed on that particular night, the patient suddenly made a noise and stated, "cannot see." This lasted about 30 minutes and then she recovered. The patient does not have any recollection of this incident. The patient did not lose her strength or fall. She was taken back to her room but currently she has no recollection of this episode. REVIEW OF SYSTEMS A 12-point review of systems is negative except for what is stated in the HPI. PAST MEDICAL HISTORY 1. Atrial fibrillation. 2. First degree heart block. 3. Hypertension. 4. COPD. 5. Urinary incontinence. 6. Diverticulitis. 7. CKD. PAST SURGICAL HISTORY: 1. Bilateral knee replacement. 2. Aortic aneurysm. 3. Renal cancer. 4. Left nephrectomy 2009. 5. Cholecystectomy. 6. Pancreatic pseudocyst drainage 2012. MEDICATIONS: 1. Tramadol as needed. 2. Tylenol as needed. 3. Hydralazine. 4. Aspirin 5. Calcitrol. 6. Zocor. ALLERGIES: None known. FAMILY HISTORY Father had heart attack at age 68. Mother due to natural causes. Sister with history of brain tumor, children are healthy. SOCIAL HISTORY She is a retired clinical secretary, lives with son and daughter, quit tobacco 20 years ago and occasional ethanol. Denies illicit drug abuse. She uses a cane sometimes during ambulation PHYSICAL EXAMINATION: General: An elderly female not in acute distress pleasantly demented, tells jokes during the encounter. HEENT: Atraumatic, normocephalic. Intact hearing. Intact vision. Neck: Trachea in the midline. No signs of meningeal irritation. Cardiovascular: Regular rate and rhythm. Respiration: Clear to auscultation. No wheezes. Gastrointestinal: Soft abdomen, no tenderness. Musculoskeletal: No clubbing, cyanosis or edema. Neurological: Awake, alert, oriented to person, place, not time. Cranial nerves II-XII are grossly intact. Motor examination: Sensory examination, cerebellar function are grossly intact with occasional give-way due to lack of cooperation. Psychiatric: Appropriate mood and affect. No hallucinations. LABORATORY DATA: White blood cells 6.8, hemoglobin 12.1, MCV 89.5, platelet count 9.6, sodium 137, potassium 3.7, anion gap 11, BUN 38, creatinine 2.13, LFTs normal, thyroid stimulating hormone normal. DIAGNOSTICS IMAGING - Head CT scan: no acute findings, cortical volume loss, chronic white matter, ischemic changes. - Head MRA: no evidence of aneurysmal high grade stenosis. - Carotid ultrasound:, Plaque in the carotid bulb region bilateral and incidental proximal internal artery with slight elevation of the peak side velocities at the left common carotid, internal carotid arteries, mild stenosis can be ruled out on the left neck. - Brain MRI: age-related findings, no acute intracranial findings. DIAGNOSTIC IMPRESSION 1. Decline in memory and cognitive function/dementia. 2. TIA. 3. Atrial fibrillation 4. Hypertension. 5. Carotid artery disease. PLAN -I explained to the patient that sudden bilateral visual loss is uncommon presentation of TIA and a possible fluctuation in her blood pressure. 0Increase aspirin from 81 to 162mg. - Will follow up as outpatient for further workup for the carotid disease. - Follow up as outpatient for further workup for dementia. - Neurological examination is nonfocal and neurologic investigation unremarkable. The patient is stable from a neurology standpoint with no acute finding. - Please call for questions. Thank you for the opportunity to participate in the care of your patient. Jin Landers MD RGO/YULY /12:46 AM /7:43 AM [facility]
--- NOTE | 2017-01-10 13:19 | HHI.FPPN ---
Addendum to progress note ADDENDUM Reason for addendum: Additonal documentation Additional information Called the patients son at [phone] and informed him about the recommendation from neurology to increase aspirin 81 mg po daily to 162 mg po daily. He expressed understanding and stated he can make sure she is given two 81mg tabs daily. Lee Howell MD R1 January 10, 2017 13:19
--- NOTE | 2017-01-10 16:56 | EKG ---
Date Performed: 01/08/2017 Time Performed: 23:09:01 PTAGE: 86 years EKG: SINUS BRADYCARDIA LOW QRS VOLTAGE IN PRECORDIAL LEADS POSSIBLE RIGHT VENTRICULAR CONDUCTION DELAY NONSPECIFIC T-WAVE ABNORMALITY BORDERLINE ECG NO PREVIOUS TRACING DOCTOR: Emilee Gilliam Interpretating Date/Time 01/10/2017 16:53:13
--- NOTE | 2017-01-10 16:56 | EKG ---
Date Performed: 01/09/2017 Time Performed: 05:02:57 PTAGE: 86 years EKG: Sinus rhythm NONSPECIFIC T-WAVE ABNORMALITY Abnormal R wave progression, potentially consistent with an anterosep jase TX, age indeterminate ABNORMAL RHYTHM ECG PREVIOUS TRACING : 08/03/2016 18.34 DOCTOR: Emilee Gilliam Interpretating Date/Time 01/10/2017 16:53:59
[2017-01-25] MEDS ORDERED: TRAM50TA PO ×2 (11:36→11:37)
== END 2017-01-09 20:17 | disposition home or self-care (01) ==
LOC: NEPC 22:14 → NEDA 01-09 01:22 → NEPHCDU 01-09 03:48
PROVIDERS: ADMIT Family Medicine; ATTEND Family Medicine
DX: G45.9 Transient cerebral ischemic attack, unspecified (principal); I48.91 Unspecified atrial fibrillation; I12.9 Hypertensive chronic kidney disease with stage 1 through stage 4 chronic kidney disease, or unspecified chronic kidney disease; N18.4 Chronic kidney disease, stage 4 (severe); D69.6 Thrombocytopenia, unspecified; F03.90 Unspecified dementia, unspecified severity, without behavioral disturbance, psychotic disturbance, mood disturbance, and anxiety; N39.0 Urinary tract infection, site not specified; B96.20 Unspecified Escherichia coli [E. coli] as the cause of diseases classified elsewhere; I44.0 Atrioventricular block, first degree; J44.9 Chronic obstructive pulmonary disease, unspecified; R32 Unspecified urinary incontinence; K57.92 Diverticulitis of intestine, part unspecified, without perforation or abscess without bleeding; E78.5 Hyperlipidemia, unspecified; E78.00 Pure hypercholesterolemia, unspecified; K86.1 Other chronic pancreatitis; I71.4 Abdominal aortic aneurysm, without rupture; Z66 Do not resuscitate; Z87.891 Personal history of nicotine dependence; Z85.528 Personal history of other malignant neoplasm of kidney; Z96.653 Presence of artificial knee joint, bilateral
CPT/HCPCS: 70450; 70544; 70551; 80053; 81001; 82550; 82607; 82948; 83036; 83735; 84100; 84425; 84443; 84484; 85025; 85610; 85730; 87077; 87086; 87186; 92610; 93005; 93306; 93880; 97162; 99285; G0378; G8987; G8988; G8996; G8997; G8998; J1644; J7030

== ENCOUNTER 2018-07-04 17:41 | Inpatient (IN) ==
--- NOTE | 2018-07-04 19:03 | XR ---
EXAM DATE: 07/04/2018 6:40 PM EST AGE/SEX: 88 years / Female INDICATIONS: Lower chest upper abdomen pain. CLINICAL DATA: This is the patient's initial encounter. Patient reports that signs and symptoms have been present for 1 day and indicates a pain score of 4/10. MEDICAL/SURGICAL HISTORY: . Aneurysm, abdominal. Hypercholesterolemia. Hypertension. COPD. Panc reatitis. Left kidney cancer. Cholecystectomy. Nephrectomy, left. COMPARISON: No prior exams available for comparison. FINDINGS: A single AP view of the chest demonstrates the lungs to be symmetrically aerated without evidence of mass, infiltrate or effusion. The cardiomediastinal contours are unremarkable. Osseous structures a re intact. CONCLUSION: 1. No acute cardiopulmonary disease. Electronically signed by: Taco Yadav MD 07/04/2018 7:02 PM EST
[2018-07-04 19:06] LABS: Activated Partial Thrombo Time 30.2 sec (23.4-31.7); Baso # (Auto) 0.1 th/mm3 (0.0-0.2); Baso % (Auto) 0.8 % (0.0-2.0); Hematocrit 41.5 % (35.0-46.0); Hemoglobin 13.6 gm/dL (11.6-15.3); Lymph # (Auto) 0.7 th/mm3 (1.0-4.8); Lymph % (Auto) 7.7 % (9.0-44.0); Mean Corpuscular HGB Conc 32.8 % (32.0-36.0); Mean Corpuscular Hemoglobin 31.2 pg (27.0-34.0); Mean Corpuscular Volume 95.1 fL (80.0-100.0); Mean Platelet Volume 9.3 fL (7.0-11.0); Mono # (Auto) 0.9 th/mm3 (0.0-0.9); Mono % (Auto) 9.6 % (0.0-8.0); Neut # (Auto) 7.9 th/mm3 (1.8-7.7); Neut % (Auto) 81.9 % (16.0-70.0); Platelet Count 149 th/mm3 (150-450); Red Blood Count 4.37 mil/mm3 (4.00-5.30); Red Cell Distribution Width 14.6 % (11.6-17.2); White Blood Count 9.6 th/mm3 (4.0-11.0)
[2018-07-04 19:13] LABS: Alanine Aminotransferase 70 U/L (10-53)
[2018-07-04] MEDS: dilTIAZem Inj 125 MG in Sodium Chlor 0.9% Inj 100 ML IV.CONT PRN (19:15)
[2018-07-04 19:17] LABS: Anion Gap 12 meq/L (5-15)
--- NOTE | 2018-07-04 19:19 | ED ---
HPI General Chief complaint: Abdominal Pain Stated complaint: Patient states abd pain Time Seen by Provider: 07/04/18 18:24 History of Present Illness HPI narrative: This is an 88-year-old female with history of hypertension, hyperlipidemia, who presents today with complaints of nausea and chest tightness. Patient was noted to have a heart rate in the 150s in triage. She states that she has had these symptoms for over 24 hours. She denies any diaphoresis. She does report nausea with no vomiting. When asked about her nausea, she states that she just does not feel hungry and feels like she wants to throw up. She denies any true abdominal pain. Please note that the chart initially stated abdominal pain however further questioning was as above. The patient was noted to be in atrial flutter and both the patient and her daughter do not think she has a history of a flutter. Related Data Home Medications Medication Instructions Recorded Confirmed allopurinol 100 mg PO DAILY 07/04/18 07/04/18 aspirin 81 mg PO DAILY 07/04/18 07/04/18 cholecalciferol (vitamin D3) 2,000 unit PO DAILY 07/04/18 07/04/18 [Vitamin D3] diltiazem HCl 300 mg PO DAILY 07/04/18 07/04/18 lutein 6 mg PO DAILY 07/04/18 07/04/18 simvastatin [Zocor] 10 mg PO QPM 07/04/18 07/04/18 vit C-vit I-tgitaz-xom-om-3 1 cap PO DAILY 07/04/18 07/04/18 [Ocuvite] Allergies Allergy/AdvReac Type Severity Reaction Status Date / Time No Known Allergies Allergy Verified 07/04/18 18:19 Review of Systems ROS: all other systems reviewed are negative Constitutional Reports system reviewed and no additional complaints, except as docu Eyes Reports system reviewed and no additional complaints, except [facility] E[facility] Reports system reviewed and no additional complaints, except as [facility] Cardiovascular Reports chest pain, Denies diaphoresis, Denies palpitations and Denies dyspnea Respiratory Denies chest congestion and Denies dyspnea Gastrointestinal Denies abdominal pain, Reports nausea and Denies vomiting Genitourinary Reports system reviewed and no additional complaints, except as [facility] Musculoskeletal Denies system reviewed and no additional complaints, except as [facility] Neurologic Reports system reviewed and no additional complaints, except as [facility] Medical History Medical History A-fib (Acute) Dementia (Acute) FH: total knee replacement (Acute) High cholesterol (Acute) Hx of abdominal aortic aneurysm (Acute) Surgical History Surgical History History of cholecystectomy (Acute) History of kidney removal (Acute) History of repair of aneurysm of abdominal aorta using endovascular stent graft (Acute) Social History Social History Substance History: No History of Abuse Second Hand Smoke Exposure: No Smoking Status: Former smoker Tobacco Type: Cigarettes How Often Do You Have a Drink Containing Alcohol: Never Immunization History Tetanus Immunization: >5 Years Exam Narrative Exam Narrative: GENERAL: Well-developed well-nourished female in no acute respiratory distress. SKIN: Focused skin assessment warm/dry. HEAD: Atraumatic. Normocephalic. EYES: No scleral icterus. No injection or drainage. ENT: No nasal bleeding or discharge. Mucous membranes pink and moist. NECK: Trachea midline. No JVD. Supple. CARDIOVASCULAR: Tachycardia with atrial flutter on monitor. No murmur appreciated. RESPIRATORY: No accessory muscle use. Clear to auscultation. Breath sounds equal bilaterally. GASTROINTESTINAL: Abdomen soft, non-tender, nondistended. Hepatic and splenic margins not palpable. MUSCULOSKELETAL: No obvious deformities. No clubbing. No cyanosis. No edema. NEUROLOGICAL: Awake and alert. No obvious cranial nerve deficits. Motor grossly within normal limits. Normal speech. Course Initial Documented Vital Signs Temperature 100.9 F H 07/04/18 17:51 Pulse Rate 156 H 07/04/18 17:51 Respiratory Rate 28 H 07/04/18 17:51 Blood Pressure 132/88 07/04/18 17:51 Pulse Oximetry 96 07/04/18 17:51 Last Documented Vital Signs Temperature 100.9 F H 07/04/18 17:51 Pulse Rate 94 H 07/04/18 18:50 Respiratory Rate 20 07/04/18 18:50 Blood Pressure 144/88 H 07/04/18 18:50 Pulse Oximetry 95 07/04/18 18:50 Sign Out Sign Out Data: Patient Sign Out occurred on 07/04/18 at 19:52. Patient's care was discussed, and care was transferred from Raciel Tucker MD to Khadijah Pleitez MD. Sign Out Comment: This is a 88-year-old female presents today with atrial flutter with RVR. Patient's been started on a diltiazem drip. Labs are pending at this time. She is been signed out to Dr. Pleitez for further disposition. Last updated by Raciel Tucker MD at 07/04/18 19:33 Post-Handoff Eval: The patient's case was checked out to me by Dr. Tucker. Please see his initial history and physical. The patient's case was checked out to me at the conclusion of his shift pending laboratory studies. The patient presented with atrial flutter with RVR and has been placed on a diltiazem drip. On initial evaluation of the patient, the patient's heart rate has come down into the 90s to low 100s. During the course of the patient's emergency department visit, the patient was placed on a radiographer cardiac catheterization with oximetry and frequent blood pressure monitoring. The patient had IV access obtained and blood work sent for analysis. The patient was initially provided a diltiazem drip for rate control. The patient's diagnostic studies are remarkable for a white count of 9.6, hemoglobin 13.6, platelets 149, neutrophils 81.9, PT 10, PTT 30.2, chemistry is remarkable for chloride of 108, BUN 35, creatinine 2.21 which is similar to her prior level of renal insufficiency, glucose 135, AST 83, ALT 78, alk phos 214, CPK 215 with an MB percent of 0.5, troponin I is elevated at 0.33 which I suspect is demand related due to her tachycardia, BNP 471, lipase within normal limits at 178, chest x-ray shows no acute cardiopulmonary disease. Due to the patient's elevated temperature of 100.9, in and out catheterization to evaluate for possible underlying UTI will be done. Given the patient's elevated troponin, patient was given aspirin 324 mg p.o. x1, nitroglycerin 1 inch to the chest wall. The patient's case including history, pertinent physical examination findings, and laboratory studies were discussed with Dr. Mcgovern. It was agreed that the patient would be admitted to the hospitalist service. The patient's results were discussed with the patient, including the plan of care. I explained that further testing and/ or monitoring is indicated based on the patient's history, examination, and/ or laboratory findings. Therefore, I recommended admission for additional evaluation. The patient expressed understanding and was agreeable with this plan. The patient was admitted to the hospital in guarded condition and sent to a bed under the care of the [facility] service. Medical Decision Making MDM Narrative Medical decision making narrative: 88-year-old female presents today with complaints of chest tightness. Patient also reported nausea. Patient was noted to be in a atrial flutter with rapid ventricular response. She is been started on IV diltiazem. Labs are pending at the time of the end of the shift. She will be signed out to Dr. Pleitez who will follow up on the labs. Patient will need admission. Medical Screen Exam Complete: Yes Emergency Medical Condition: Yes Differential Diagnosis Differential Diagnosis: New onset A. fib other/A. fib versus ACS versus metabolic derangement Lab Data Result diagrams: 07/04/18 18:30 07/04/18 18:30 Lab Results 07/04/18 07/04/18 07/04/18 Range/Units 18:30 18:30 18:30 WBC 9.6 (4.0-11.0) th/mm3 RBC 4.37 (4.00-5.30) mil/mm3 Hgb 13.6 (11.6-15.3) gm/dL Hct 41.5 (35.0-46.0) % MCV 95.1 (80.0-100.0) fL MCH 31.2 (27.0-34.0) pg MCHC 32.8 (32.0-36.0) % RDW 14.6 (11.6-17.2) % Plt Count 149 L (150-450) th/mm3 MPV 9.3 (7.0-11.0) fL Neut % (Auto) 81.9 H (16.0-70.0) % Lymph % (Auto) 7.7 L (9.0-44.0) % [place] % (Auto) 9.6 H (0.0-8.0) % Eos % (Auto) 0.0 (0.0-4.0) % Baso % (Auto) 0.8 (0.0-2.0) % Neut # (Auto) 7.9 H (1.8-7.7) th/mm3 Lymph # (Auto) 0.7 L (1.0-4.8) th/mm3 [place] # (Auto) 0.9 (0.0-0.9) th/mm3 Eos # (Auto) 0.0 (0.0-0.4) th/mm3 Baso # (Auto) 0.1 (0.0-0.2) th/mm3 WBC Differential . Differential Comment Auto diff final PT 10.0 (9.8-11.6) sec INR 1.0 Ratio APTT 30.2 (23.4-31.7) sec Sodium 141 (136-145) meq/L Potassium 4.5 (3.5-5.1) meq/L Chloride 108 H (98-107) meq/L Carbon Dioxide 21.4 (21.0-32.0) meq/L Anion Gap 12 (5-15) meq/L BUN 35 H (7-18) mg/dL Creatinine 2.21 H (0.50-1.00) mg/dL Estimated GFR 21 L (>89) mL/min Random Glucose 135 H (74-106) mg/dL Calcium 9.7 (8.5-10.1) mg/dL Total Bilirubin 0.9 (0.2-1.0) mg/dL AST 83 H (15-37) U/L ALT 70 H (10-53) U/L Alkaline Phosphatase 214 H (45-117) U/L Total Creatine Kinase 215 H (26-192) U/L CK-MB (CK-2) Less than 1.0 (0.5-3.6) ng/mL CK-MB (CK-2) % 0.5 (0.0-4.0) % Troponin I 0.33 H (0.02-0.05) ng/mL B-Natriuretic Peptide (0-100) pg/mL Total Protein 7.6 (6.4-8.2) g/dL Albumin 3.4 (3.4-5.0) g/dL Lipase 178 (73-393) U/L 07/04/18 Range/Units 18:30 WBC (4.0-11.0) th/mm3 RBC (4.00-5.30) mil/mm3 Hgb (11.6-15.3) gm/dL Hct (35.0-46.0) % MCV (80.0-100.0) fL MCH (27.0-34.0) pg MCHC (32.0-36.0) % RDW (11.6-17.2) % Plt Count (150-450) th/mm3 MPV (7.0-11.0) fL Neut % (Auto) (16.0-70.0) % Lymph % (Auto) (9.0-44.0) % [place] % (Auto) (0.0-8.0) % Eos % (Auto) (0.0-4.0) % Baso % (Auto) (0.0-2.0) % Neut # (Auto) (1.8-7.7) th/mm3 Lymph # (Auto) (1.0-4.8) th/mm3 [place] # (Auto) (0.0-0.9) th/mm3 Eos # (Auto) (0.0-0.4) th/mm3 Baso # (Auto) (0.0-0.2) th/mm3 WBC Differential Differential Comment PT (9.8-11.6) sec INR Ratio APTT (23.4-31.7) sec Sodium (136-145) meq/L Potassium (3.5-5.1) meq/L Chloride (98-107) meq/L Carbon Dioxide (21.0-32.0) meq/L Anion Gap (5-15) meq/L BUN (7-18) mg/dL Creatinine (0.50-1.00) mg/dL Estimated GFR (>89) mL/min Random Glucose (74-106) mg/dL Calcium (8.5-10.1) mg/dL Total Bilirubin (0.2-1.0) mg/dL AST (15-37) U/L ALT (10-53) U/L Alkaline Phosphatase (45-117) U/L Total Creatine Kinase (26-192) U/L CK-MB (CK-2) (0.5-3.6) ng/mL CK-MB (CK-2) % (0.0-4.0) % Troponin I (0.02-0.05) ng/mL B-Natriuretic Peptide 471 H (0-100) pg/mL Total Protein (6.4-8.2) g/dL Albumin (3.4-5.0) g/dL Lipase (73-393) U/L Imaging Data Radiologist's impression: Chest X-Ray 07/04/18 18:24 CONCLUSION: 1. No acute cardiopulmonary disease. Discharge Plan Physicians Team ED Provider: Khadijah Pleitez Primary Care Provider: UNKNOWN, Rxs /Orders / Referrals /Forms Prescriptions: No Action simvastatin [Zocor] 10 mg Tablet 10 mg PO QPM RF: 0 diltiazem HCl 300 mg Capsule,Extended Release 24 Hr 300 mg PO DAILY RF: 0 allopurinol 100 mg Tablet 100 mg PO DAILY RF: 0 lutein 6 mg Capsule 6 mg PO DAILY RF: 0 aspirin 81 mg Tablet,Chewable 81 mg PO DAILY RF: 0 vit C-vit U-snxryu-koa-om-3 [Ocuvite] [id number] ra-uagj-fm-mg Capsule 1 cap PO DAILY RF: 0 cholecalciferol (vitamin D3) [Vitamin D3] 2,000 unit Capsule 2,000 unit PO DAILY RF: 0 Status ED Status: With Doctor
[2018-07-04 19:21] LABS: Albumin 3.4 g/dL (3.4-5.0); Alkaline Phosphatase 214 U/L (45-117); Aspartate Aminotransferase 83 U/L (15-37); Blood Urea Nitrogen 35 mg/dL (7-18); Calcium 9.7 mg/dL (8.5-10.1); Carbon Dioxide 21.4 meq/L (21.0-32.0); Chloride 108 meq/L (98-107); Creatine Kinase 215 U/L (26-192); Glomerular Filtration Rate 21 mL/min (>89); Glucose,Random 135 mg/dL (74-106); Lipase 178 U/L (73-393); Potassium 4.5 meq/L (3.5-5.1); Sodium 141 meq/L (136-145); Total Protein 7.6 g/dL (6.4-8.2); Troponin I 0.33 ng/mL (0.02-0.05)
[2018-07-04 19:33] LABS: CKMB Percent 0.5 % (0.0-4.0)
[2018-07-04] MEDS ORDERED: Bisacodyl 10 MG Supp RECTAL PRN (21:08)
[2018-07-04 21:11] LABS: Bacteria,Urine Many /hpf; Bilirubin,Urine Negative (Negative); Clarity,Urine Cloudy (Clear); Glucose,Urine (UA) Negative (Negative); Leukocyte Esterase,Urine Moderate (Negative); Mucus,Urine Few /lpf (Occasional); Nitrite,Urine Negative (Negative); Specific Gravity,Urine 1.017 (1.002-1.035); Squamous Epithelial Cell,Urine 1 /hpf (0-5)
[2018-07-04 21:13] LABS: Color,Urine Yellow (Yellw/Straw)
--- NOTE | 2018-07-04 21:24 | P.HP ---
History of Present Illness Service: [facility] Primary Care Physician: UNKNOWN History of Present Illness: 88-year-old female with a past medical history significant for atrial fibrillation anticoagulated on aspirin, history of TIA, hypertension, hyperlipidemia, chronic kidney disease stage IV and gout presents to the emergency department for evaluation of abdominal pain. The patient's daughter, who she lives with, provides most of the history as the patient's history is limited secondary to dementia. Per the daughter, the patient has had abdominal pain times 2 days. She has been gagging and burping with meals and has had an associated anorexia. At this time, the patient denies any abdominal pain. It is unknown if she has had any diarrhea. She has been increasingly fatigued over the past 2 days as well. The patient denies any chest pain or shortness of breath. Denies any palpitations. No nausea or vomiting. No lateralizing signs/symptoms. No fever/chills. Inpatient Certification: I certify that the inpatient services were ordered in accordance with Medicare regulations governing the order. This includes certification that hospital inpatient services are reasonable and necessary and in the case of services not specified as inpatient-only under 42 CFR 419.22(n), that they are appropriately provided as inpatient services in accordance to with the 2-midnight benchmark under 43 CFR 412.3(e) Estimated Total Length of Stay (Days): 2 Plans for Post Hospital Care: Home Review of Systems All other systems reviewed negative except as stated [facility] - History History Provided By: Patient - Medical History Medical History: Medical History (Last Updated 07/04/18 @ 21:16 by Anahi Mcgovern MD) A-fib Chronic kidney disease Dementia FH: total knee replacement High cholesterol History of renal cell carcinoma Hx of abdominal aortic aneurysm Hyperlipidemia Hypertension - Surgical History Surgical History: Surgical History (Last Reviewed 07/04/18 @ 21:16 by Anahi Mcgovern MD) History of cholecystectomy History of kidney removal History of repair of aneurysm of abdominal aorta using endovascular stent graft - Family History Family History: Family History (Last Updated 07/04/18 @ 21:17 by Anahi Mcgovern MD) Other Coronary artery disease - Tobacco History Second Hand Smoke Exposure: No Tobacco Use In Past 30 Days: No Smoking Status: Former smoker Tobacco Type: Cigarettes - Alcohol History How Often Do You Have a Drink Containing Alcohol: Never - Substance Use History Substance History: No History of Abuse - Immunization History Tetanus Immunization: >5 Years Medications and Allergies Active Medications: Active Medications Diltiazem HCl 125 mg/ Sodium (Chloride) 125 mls @ 5 mls/hr IV.CONT TITRATE PRN ; Protocol PRN Reason: Per Protocol Sodium Chloride (Ns Flush) 2 ml IV.FLUSH UNSCH PRN PRN Reason: FLUSH AFTER USING IV ACCESS Last Admin: 07/04/18 18:49 Dose: 2 ml Allergies Allergy/AdvReac Type Severity Reaction Status Date / Time No Known Allergies Allergy Verified 07/04/18 18:19 Home Medications Medication Instructions Recorded Confirmed Type allopurinol 100 mg PO DAILY 07/04/18 07/04/18 History aspirin 81 mg PO DAILY 07/04/18 07/04/18 History cholecalciferol (vitamin D3) 2,000 unit PO DAILY 07/04/18 07/04/18 History [Vitamin D3] diltiazem HCl 300 mg PO DAILY 07/04/18 07/04/18 History lutein 6 mg PO DAILY 07/04/18 07/04/18 History simvastatin [Zocor] 10 mg PO QPM 07/04/18 07/04/18 History vit C-vit I-kundxe-waf-om-3 1 cap PO DAILY 07/04/18 07/04/18 History [Ocuvite] Exam Vital signs: Vital Signs 07/04/18 17:51 07/04/18 18:24 07/04/18 18:50 Temperature 100.9 F H Pulse Rate 156 H 94 H Respiratory Rate 28 H 20 Blood Pressure 132/88 144/88 H Pulse Oximetry 96 95 95 07/04/18 20:32 Temperature Pulse Rate 92 H Respiratory Rate 17 Blood Pressure 101/59 L Pulse Oximetry 97 Intake & Output 07/04/18 07/04/18 07/05/18 06:59 18:59 06:59 Weight 86.183 kg Narrative: Gen.: No acute distress Head: Normocephalic. Atraumatic. EENT: Pupils equal round and reactive to light. Nose without drainage. Airway intact. Throat without injection. Cardiovascular: Regular rate and rhythm. No murmurs, rubs or gallops. Respiratory: Lungs clear to auscultation bilaterally. No wheezes or rhonchi. Abdomen: Soft, nontender, nondistended. No peritoneal signs. Musculoskeletal: No gross deformities. No edema. Skin: No obvious rashes or erythema. Neuro: Sensory and motor grossly intact. Cranial nerves II through XII grossly intact. Results - Labs CBC & Chem 7: 07/04/18 18:30 07/04/18 18:30 Labs: Laboratory Results - last 24 hr 07/04/18 07/04/18 07/04/18 18:30 18:30 18:30 WBC 9.6 RBC 4.37 Hgb 13.6 Hct 41.5 MCV 95.1 MCH 31.2 MCHC 32.8 RDW 14.6 Plt Count 149 L MPV 9.3 Neut % (Auto) 81.9 H Lymph % (Auto) 7.7 L [place] % (Auto) 9.6 H Eos % (Auto) 0.0 Baso % (Auto) 0.8 Neut # (Auto) 7.9 H Lymph # (Auto) 0.7 L [place] # (Auto) 0.9 Eos # (Auto) 0.0 Baso # (Auto) 0.1 WBC Differential . Differential Comment Auto diff final PT 10.0 INR 1.0 APTT 30.2 Sodium 141 Potassium 4.5 Chloride 108 H Carbon Dioxide 21.4 Anion Gap 12 BUN 35 H Creatinine 2.21 H Estimated GFR 21 L Random Glucose 135 H Calcium 9.7 Total Bilirubin 0.9 AST 83 H ALT 70 H Alkaline Phosphatase 214 H Total Creatine Kinase 215 H CK-MB (CK-2) Less than 1.0 CK-MB (CK-2) % 0.5 Troponin I 0.33 H B-Natriuretic Peptide Total Protein 7.6 Albumin 3.4 Lipase 178 07/04/18 18:30 WBC RBC Hgb Hct MCV MCH MCHC RDW Plt Count MPV Neut % (Auto) Lymph % (Auto) [place] % (Auto) Eos % (Auto) Baso % (Auto) Neut # (Auto) Lymph # (Auto) [place] # (Auto) Eos # (Auto) Baso # (Auto) WBC Differential Differential Comment PT INR APTT Sodium Potassium Chloride Carbon Dioxide Anion Gap BUN Creatinine Estimated GFR Random Glucose Calcium Total Bilirubin AST ALT Alkaline Phosphatase Total Creatine Kinase CK-MB (CK-2) CK-MB (CK-2) % Troponin I B-Natriuretic Peptide 471 H Total Protein Albumin Lipase - Imaging Impressions Chest X-Ray 07/04/18 18:24 CONCLUSION: 1. No acute cardiopulmonary disease. Caprini VTE Risk Assessment Caprini VTE Risk Assessment: Moderate/High Risk (score >= 2) Caprini Risk Assessment Model: Point Value = 1 Point Value = 2 Point Value = 3 Point Value = 5 Age 41-60 Minor surgery BMI > 25 kg/m2 Swollen legs Varicose veins or History of unexplained or recurrent spontaneous Oral contraceptives or hormone replacement Sepsis (< 1 month) Serious lung disease, including pneumonia (< 1 month) Abnormal pulmonary function Acute myocardial infarction Congestive heart failure (< 1 month) History of inflammatory bowel disease Medical patient at bed rest Age 61-74 Arthroscopic surgery Major open surgery (> 45 min) Laparoscopic surgery (> 45 min) Malignancy Confined to bed (> 72 hours) Immobilizing plaster cast Central venous access Age >= 75 History of VTE Family history of VTE Factor V Leiden Prothrombin [id number] Lupus anticoagulant Anticardiolipin antibodies Elevated serum homocysteine Heparin-induced thrombocytopenia Other congenital or acquired thrombophilia Stroke (< 1 month) Elective arthroplasty Hip, pelvis, or leg fracture Acute spinal cord injury (< 1 month) Prophylaxis Regimen: Total Risk Factor Score Risk Level Prophylaxis Regimen 0-1 Low Early ambulation 2 Moderate Order ONE of the following: *Sequential Compression Device (SCD) *Heparin 5000 units SQ BID 3-4 Higher Order ONE of the following medications: *Heparin 5000 units SQ TID *Enoxaparin/Lovenox 40 mg SQ daily (WT < 150 kg, CrCl > 30 mL/min) *Enoxaparin/Lovenox 30 mg SQ daily (WT < 150 kg, CrCl > 10-29 mL/min) *Enoxaparin/Lovenox 30 mg SQ BID (WT < 150 kg, CrCl > 30 mL/min) AND/OR *Sequential Compression Device (SCD) 5 or more Highest Order ONE of the following medications: *Heparin 5000 units SQ TID (Preferred with Epidurals) *Enoxaparin/Lovenox 40 mg SQ daily (WT < 150 kg, CrCl > 30 mL/min) *Enoxaparin/Lovenox 30 mg SQ daily (WT < 150 kg, CrCl > 10-29 mL/min) *Enoxaparin/Lovenox 30 mg SQ BID (WT < 150 kg, CrCl > 30 mL/min) AND *Sequential Compression Device (SCD) Assessment and Plan - Plan Assessment/plan: 1. Atrial flutter with RVR EKG significant for a flutter with RVR, pulse 144, no ST segment elevation or depression, personally reviewed Patient has a history of atrial fibrillation on diltiazem at home Status post diltiazem bolus/drip in the ED Wean drip as tolerated Continue home diltiazem Follow-up with records clerk as outpatient if patient tolerates transition to p.o. diltiazem 2. Elevated troponin Patient with chronic kidney disease and atrial flutter, likely contributing to elevated troponin Denies chest pain Serial enzymes 3. Chronic kidney disease Creatinine 2.21, baseline Monitor renal function 4. Hypertension/hyperlipidemia/gout Continue home medications 5. Transaminitis Mild Trend LFTs Avoid hepatotoxic agents FEN N.p.o. Electrolytes: Monitor and replete as needed NS at 70 cc/hour Heparin
[2018-07-04] MEDS ORDERED: Sod Chloride 0.9% Inj 1,000 ML IV.CONT SCH (22:00)
[2018-07-04] MEDS: Heparin - SQ 10,000 UNITS/ML Vial SQ SCH (23:00)
[2018-07-05] MEDS: dilTIAZem Inj 125 MG in Sodium Chlor 0.9% Inj 100 ML IV.CONT PRN ×2 (01:13→22:26)
[2018-07-05 02:06] LABS: Baso % (Auto) 0.5 % (0.0-2.0); Eos % (Auto) 0.1 % (0.0-4.0); Hematocrit 36.5 % (35.0-46.0); Hemoglobin 12.1 gm/dL (11.6-15.3); Lymph # (Auto) 1.3 th/mm3 (1.0-4.8); Mean Corpuscular HGB Conc 33.1 % (32.0-36.0); Mean Corpuscular Hemoglobin 31.9 pg (27.0-34.0); Mean Corpuscular Volume 96.4 fL (80.0-100.0); Mean Platelet Volume 8.9 fL (7.0-11.0); Mono % (Auto) 12.9 % (0.0-8.0); Neut # (Auto) 5.3 th/mm3 (1.8-7.7); Neut % (Auto) 69.5 % (16.0-70.0); Platelet Count 136 th/mm3 (150-450); Red Blood Count 3.79 mil/mm3 (4.00-5.30); Red Cell Distribution Width 14.7 % (11.6-17.2); White Blood Count 7.7 th/mm3 (4.0-11.0)
[2018-07-05 02:18] LABS: Alanine Aminotransferase 60 U/L (10-53); Anion Gap 11 meq/L (5-15); Aspartate Aminotransferase 55 U/L (15-37); Blood Urea Nitrogen 42 mg/dL (7-18); Carbon Dioxide 22.7 meq/L (21.0-32.0); Chloride 109 meq/L (98-107); Glomerular Filtration Rate 19 mL/min (>89); Glucose,Random 112 mg/dL (74-106); Potassium 3.8 meq/L (3.5-5.1); Sodium 143 meq/L (136-145)
[2018-07-05 02:23] LABS: Alkaline Phosphatase 186 U/L (45-117); Creatine Kinase 135 U/L (26-192); Total Protein 6.5 g/dL (6.4-8.2); Troponin I 0.22 ng/mL (0.02-0.05)
[2018-07-05] MEDS ORDERED: Senna/Docusate Sodium 8.6/50 MG Tablet PO SCH (09:00)
[2018-07-05] MEDS: Allopurinol 100 MG Tablet PO SCH (09:22)
[2018-07-05] MEDS: dilTIAZem CD 300 MG Capsule PO SCH (09:22)
[2018-07-05] MEDS: Heparin - SQ 10,000 UNITS/ML Vial SQ SCH ×2 (09:23→22:04)
--- NOTE | 2018-07-05 12:00 | P.PN ---
Subjective Interval history: Follow-up atrial fibrillation with RVR/abnormal UA/elevated troponin I July 05, 2018-patient seen and examined, denies any chest pain, shortness of breath, heart palpitation. Patient is quite pleasant however secondary to dementia does no know why she is in hospital. Physical Exam Vital signs: Vital Signs 07/04/18 17:51 07/04/18 18:24 07/04/18 18:50 Temperature 100.9 F H Pulse Rate 156 H 94 H Respiratory Rate 28 H 20 Blood Pressure 132/88 144/88 H Pulse Oximetry 96 95 95 07/04/18 20:32 07/04/18 22:16 07/04/18 23:12 Temperature Pulse Rate 92 H 85 Respiratory Rate 17 18 Blood Pressure 101/59 L 111/60 Pulse Oximetry 97 97 96 07/05/18 00:15 07/05/18 00:32 07/05/18 01:17 Temperature 98.0 F Pulse Rate 67 72 Respiratory Rate 16 Blood Pressure 131/59 L Pulse Oximetry 98 98 07/05/18 02:00 07/05/18 03:00 07/05/18 04:00 Temperature 98.1 F Pulse Rate 71 78 77 Respiratory Rate 16 Blood Pressure 124/73 Pulse Oximetry 98 07/05/18 05:00 07/05/18 06:00 07/05/18 07:00 Temperature Pulse Rate 60 87 92 H Respiratory Rate Blood Pressure Pulse Oximetry 07/05/18 08:00 07/05/18 09:00 07/05/18 09:51 Temperature 99.1 F Pulse Rate 92 H 93 H Respiratory Rate 16 Blood Pressure 123/71 Pulse Oximetry 97 95 07/05/18 10:00 07/05/18 11:00 07/05/18 11:28 Temperature 98.9 F Pulse Rate 94 H 87 85 Respiratory Rate 16 Blood Pressure 106/57 L Pulse Oximetry 95 Intake & Output 07/04/18 07/05/18 07/05/18 18:59 06:59 18:59 Intake Total 125 / 125 Balance 125 / 125 Weight 86.183 kg 80 kg Intake: IV 125 / 125 Cardizem Inj 125 MG In NS Inj 125 / 125 100 ML @ 5 MG/HR 5 mls/hr IV. CONT TITRATE PRN Rx#:[id number] Oral 0 / 0 Other: # Urine Diapers 2 Date of Last Bowel Movement 07/05/18 Narrative: Gen.: No acute distress Head: Normocephalic. Atraumatic. EENT: Pupils equal round and reactive to light. Nose without drainage. Airway intact. Throat without injection. Cardiovascular: Regular rate and rhythm. No murmurs, rubs or gallops. Respiratory: Lungs clear to auscultation bilaterally. No wheezes or rhonchi. Abdomen: Soft, nontender, nondistended. No peritoneal signs. Musculoskeletal: No gross deformities. No edema. Skin: No obvious rashes or erythema. Neuro: Sensory and motor grossly intact. Cranial nerves II through XII grossly intact. Results - Labs CBC & Chem 7: 07/05/18 01:32 07/05/18 01:32 Laboratory Results - last 24 hr 07/04/18 07/04/18 07/04/18 18:30 18:30 18:30 WBC 9.6 RBC 4.37 Hgb 13.6 Hct 41.5 MCV 95.1 MCH 31.2 MCHC 32.8 RDW 14.6 Plt Count 149 L MPV 9.3 Neut % (Auto) 81.9 H Lymph % (Auto) 7.7 L [place] % (Auto) 9.6 H Eos % (Auto) 0.0 Baso % (Auto) 0.8 Neut # (Auto) 7.9 H Lymph # (Auto) 0.7 L [place] # (Auto) 0.9 Eos # (Auto) 0.0 Baso # (Auto) 0.1 WBC Differential . Differential Comment Auto diff final PT 10.0 INR 1.0 APTT 30.2 Sodium 141 Potassium 4.5 Chloride 108 H Carbon Dioxide 21.4 Anion Gap 12 BUN 35 H Creatinine 2.21 H Estimated GFR 21 L Random Glucose 135 H Calcium 9.7 Total Bilirubin 0.9 AST 83 H ALT 70 H Alkaline Phosphatase 214 H Total Creatine Kinase 215 H CK-MB (CK-2) Less than 1.0 CK-MB (CK-2) % 0.5 Troponin I 0.33 H B-Natriuretic Peptide Total Protein 7.6 Albumin 3.4 Lipase 178 Urine Color Urine Clarity Urine pH Ur Specific [place] Urine Protein Urine Glucose (UA) Urine Ketones Urine Occult Blood Urine Nitrate Urine Bilirubin Urine Urobilinogen Ur Leukocyte Esterase Urine RBC Urine WBC Urine WBC Clumps Ur Squamous Epith Cells Urine Bacteria Urine Mucus Micro UA Comment Ur Microscopic Review Urine Culture Comments 07/04/18 07/04/18 07/05/18 18:30 20:45 01:32 WBC 7.7 RBC 3.79 L Hgb 12.1 Hct 36.5 MCV 96.4 MCH 31.9 MCHC 33.1 RDW 14.7 Plt Count 136 L MPV 8.9 Neut % (Auto) 69.5 Lymph % (Auto) 17.0 [place] % (Auto) 12.9 H Eos % (Auto) 0.1 Baso % (Auto) 0.5 Neut # (Auto) 5.3 Lymph # (Auto) 1.3 [place] # (Auto) 1.0 H Eos # (Auto) 0.0 Baso # (Auto) 0.0 WBC Differential . Differential Comment Auto diff final PT INR APTT Sodium Potassium Chloride Carbon Dioxide Anion Gap BUN Creatinine Estimated GFR Random Glucose Calcium Total Bilirubin AST ALT Alkaline Phosphatase Total Creatine Kinase CK-MB (CK-2) CK-MB (CK-2) % Troponin I B-Natriuretic Peptide 471 H Total Protein Albumin Lipase Urine Color Yellow Urine Clarity Cloudy H Urine pH 5.0 Ur Specific [place] 1.017 Urine Protein 500 or greater Urine Glucose (UA) Negative Urine Ketones Negative Urine Occult Blood Small H Urine Nitrate Negative Urine Bilirubin Negative Urine Urobilinogen 2.0 H Ur Leukocyte Esterase Moderate H Urine RBC 2 Urine WBC 117 H Urine WBC Clumps Few H Ur Squamous Epith Cells 1 Urine Bacteria Many H Urine Mucus Few H Micro UA Comment Cath-culture ind Ur Microscopic Review Not Reportable Urine Culture Comments Cath-cult indicated 07/05/18 01:32 WBC RBC Hgb Hct MCV MCH MCHC RDW Plt Count MPV Neut % (Auto) Lymph % (Auto) [place] % (Auto) Eos % (Auto) Baso % (Auto) Neut # (Auto) Lymph # (Auto) [place] # (Auto) Eos # (Auto) Baso # (Auto) WBC Differential Differential Comment PT INR APTT Sodium 143 Potassium 3.8 Chloride 109 H Carbon Dioxide 22.7 Anion Gap 11 BUN 42 H Creatinine 2.45 H Estimated GFR 19 L Random Glucose 112 H Calcium 9.0 Total Bilirubin 0.5 AST 55 H ALT 60 H Alkaline Phosphatase 186 H Total Creatine Kinase 135 CK-MB (CK-2) CK-MB (CK-2) % Troponin I 0.22 H D B-Natriuretic Peptide Total Protein 6.5 D Albumin 3.0 L Lipase Urine Color Urine Clarity Urine pH Ur Specific [place] Urine Protein Urine Glucose (UA) Urine Ketones Urine Occult Blood Urine Nitrate Urine Bilirubin Urine Urobilinogen Ur Leukocyte Esterase Urine RBC Urine WBC Urine WBC Clumps Ur Squamous Epith Cells Urine Bacteria Urine Mucus Micro UA Comment Ur Microscopic Review Urine Culture Comments - Imaging Impressions Chest X-Ray 07/04/18 18:24 CONCLUSION: 1. No acute cardiopulmonary disease. Assessment and Plan - Plan 88-year-old female with 1. Atrial flutter with RVR Rate controlled, will discontinue Cardizem drip and continue with p.o. Patient is not on any oral anticoagulation likely secondary to dementia Follow-up with vehicle window tinter as outpatient 2. Elevated troponin Patient with chronic kidney disease and atrial flutter, likely contributing to elevated troponin Denies chest pain Serial enzymes 3. Chronic kidney disease Continue with gentle IV fluid hydration, avoid all nephrotoxic drug and monitor BUN and creatinine 4. Hypertension/hyperlipidemia/gout Continue home medications 5. Transaminitis Mild Trend LFTs Avoid hepatotoxic agents Consult PT Repeat BMP and CBC in a.m.
[2018-07-05 13:26] LABS: Troponin I 0.09 ng/mL (0.02-0.05)
[2018-07-05] MEDS: Sod Chloride 0.9% Inj 1,000 ML IV.CONT SCH (14:08)
--- NOTE | 2018-07-05 14:42 | ECG ---
Date Performed: 07/04/2018 Time Performed: 18:06:40 PTAGE: 88 years EKG: ATRIAL FLUTTER/TACHYCARDIA WITH RAPID VENTRICULAR RESPONSE NONSPECIFIC ST & T-WAVE ABNORMAL ITY ABNORMAL RHYTHM ECG Compared to PREVIOUS TRACING the patient is now in atrial fibrillation with rapid v rate PREVIOUS TR ACIN01/09/2017 05.02 DOCTOR: Emilee Gilliam Interpretating Date/Time 07/05/2018 14:41:17
--- NOTE | 2018-07-05 14:42 | ECG ---
Date Performed: 07/05/2018 Time Performed: 00:54:28 PTAGE: 88 years EKG: Atrial fibrillation Lateral T wave changes are nonspecific Compared to previous tracing the patient is now rate controlled Abnormal ECG PREVIOUS TRACING : 07/04/18 DOCTOR: Emilee Gilliam Interpretating Date/Time 07/05/2018 14:41:48
--- NOTE | 2018-07-05 18:10 | ECG ---
Date Performed: 07/05/2018 Time Performed: 09:16:04 PTAGE: 88 years EKG: Sinus bradycardia. Inferior infarct - age undetermined Lateral T wave changes may be due to myocardial ischemia Abnormal ECG NO PREVIOUS TRACING DOCTOR: Emilee Gilliam Interpretating Date/Time 07/05/2018 18:07:39
[2018-07-06] MEDS: Allopurinol 100 MG Tablet PO SCH (10:21)
[2018-07-06] MEDS: Heparin - SQ 10,000 UNITS/ML Vial SQ SCH ×2 (10:22→21:27)
[2018-07-06] MEDS: dilTIAZem CD 300 MG Capsule PO SCH (10:29)
--- NOTE | 2018-07-06 10:41 | P.DCO ---
- Diagnosis (1) Atrial flutter with rapid ventricular response Status: Acute - Physical Therapy Order: Evaluate and treat - Home Health Nursing Order: Signs/symptoms of disease process - Case Management Consult Case Management Consult-Home Health: Yes - Certification I have seen patient Khurram Armenta on 07/06/18. My clinical findings support the need for the requested home health care services because: Deconditioned with increased weakness I certify that my clinical findings support that this patient is homebound because: Poor cardiac reserve
--- NOTE | 2018-07-06 11:13 | P.PN ---
Subjective Interval history: Follow-up atrial fibrillation with RVR/abnormal UA/elevated troponin I July 05, 2018-patient seen and examined, denies any chest pain, shortness of breath, heart palpitation. Patient is quite pleasant however secondary to dementia does no know why she is in hospital. July 06, 2018-patient seen and examined, no chest pain, no shortness of breath, afebrile and no acute event overnight. Son by the bedside. He would like his mom to go to rehab. Physical Exam Vital signs: Vital Signs 07/05/18 11:28 07/05/18 12:00 07/05/18 13:00 Temperature 98.9 F Pulse Rate 85 79 86 Respiratory Rate 16 Blood Pressure 106/57 L Pulse Oximetry 95 07/05/18 13:57 07/05/18 15:00 07/05/18 16:00 Temperature 98.7 F Pulse Rate 89 81 81 Respiratory Rate 16 Blood Pressure 110/58 L Pulse Oximetry 92 L 07/05/18 17:00 07/05/18 18:00 07/05/18 19:00 Temperature Pulse Rate 91 H 89 95 H Respiratory Rate Blood Pressure Pulse Oximetry 07/05/18 20:00 07/05/18 20:40 07/05/18 21:00 Temperature 98.9 F Pulse Rate 90 97 H Respiratory Rate 28 H Blood Pressure 170/74 H Pulse Oximetry 94 L 07/05/18 22:00 07/05/18 23:00 07/06/18 00:00 Temperature 99.7 F H Pulse Rate 95 H 100 H 88 Respiratory Rate 28 H Blood Pressure 150/92 H Pulse Oximetry 94 L 07/06/18 01:00 07/06/18 02:00 07/06/18 03:00 Temperature Pulse Rate 97 H 73 75 Respiratory Rate Blood Pressure Pulse Oximetry 07/06/18 04:00 07/06/18 05:00 07/06/18 06:00 Temperature 98.4 F Pulse Rate 71 80 76 Respiratory Rate 28 H Blood Pressure 156/68 H Pulse Oximetry 99 07/06/18 07:00 07/06/18 08:00 07/06/18 08:54 Temperature 98.6 F Pulse Rate 77 80 Respiratory Rate 16 Blood Pressure 139/65 Pulse Oximetry 95 92 L 07/06/18 09:00 07/06/18 10:00 Temperature Pulse Rate 87 96 H Respiratory Rate Blood Pressure Pulse Oximetry Intake & Output 07/05/18 07/06/18 07/06/18 18:59 06:59 18:59 Intake Total 2029 Output Total 300 / 300 400 / 400 Balance 1730 / 1730 -400 / -400 Weight 71.5 kg Intake: IV 1100 / 1100 NS Inj 1,000 ML @ 70 mls/hr IV. 1000 / 1000 CONT .[id number] [facility] Rx#:[id number] Rocephin Inj 1,000 MG In NS Inj 100 / 100 100 ML @ 200 mls/hr IV.SIG Q24H [facility] Rx#:[id number] Oral 930 / 930 Output: Urine 300 / 300 400 / 400 Other: # Incontinent Voids 1 # Urine Diapers 1 Date of Last Bowel Movement 07/05/18 07/05/18 07/06/18 # Bowel Movements 2 Narrative: Gen.: No acute distress Head: Normocephalic. Atraumatic. EENT: Pupils equal round and reactive to light. Nose without drainage. Airway intact. Throat without injection. Cardiovascular: Regular rate and rhythm. No murmurs, rubs or gallops. Respiratory: Lungs clear to auscultation bilaterally. No wheezes or rhonchi. Abdomen: Soft, nontender, nondistended. No peritoneal signs. Musculoskeletal: No gross deformities. No edema. Skin: No obvious rashes or erythema. Neuro: Sensory and motor grossly intact. Cranial nerves II through XII grossly intact. Results - Labs CBC & Chem 7: 07/05/18 01:32 07/05/18 01:32 Laboratory Results - last 24 hr 07/04/18 07/05/18 20:45 12:45 Total Creatine Kinase 100 Troponin I 0.09 H D Urine Color Yellow Urine Clarity Cloudy H Urine pH 5.0 Ur Specific [place] 1.017 Urine Protein 500 or greater Urine Glucose (UA) Negative Urine Ketones Negative Urine Occult Blood Small H Urine Nitrate Negative Urine Bilirubin Negative Urine Urobilinogen 2.0 H Ur Leukocyte Esterase Moderate H Urine RBC 2 Urine WBC 117 H Urine WBC Clumps Few H Ur Squamous Epith Cells 1 Urine Bacteria Many H Urine Mucus Few H Micro UA Comment Cath-culture ind Urine Culture Comments Cath-cult indicated Microbiology 07/04/18 20:45 Catheterized Urine Urine Culture - Final Escherichia coli - Procedures none Assessment and Plan - Assessment (1) Atrial flutter with rapid ventricular response Code(s): I48.92 - Unspecified atrial flutter Status: Acute - Plan 88-year-old female with 1. Atrial flutter with RVR Rate controlled, will discontinue Cardizem drip and continue with p.o. Patient is not on any oral anticoagulation likely secondary to dementia Follow-up with auto washer as outpatient 2. Elevated troponin Patient with chronic kidney disease and atrial flutter, likely contributing to elevated troponin Denies chest pain Serial enzymes 3. Chronic kidney disease Continue with gentle IV fluid hydration, avoid all nephrotoxic drug and monitor BUN and creatinine 4. Hypertension/hyperlipidemia/gout Continue home medications 5. Transaminitis Mild Trend LFTs Avoid hepatotoxic agents 6. UTI Currently on Rocephin, with switched to p.o. Macrobid on discharge
[2018-07-06] MEDS: Sod Chloride 0.9% Inj 1,000 ML IV.CONT SCH (11:15)
--- NOTE | 2018-07-06 11:23 | P.DS ---
Date of admission: 07/04/18 20:19 Primary care physician: UNKNOWN Brief History from admission: 88-year-old female with a past medical history significant for atrial fibrillation anticoagulated on aspirin, history of TIA, hypertension, hyperlipidemia, chronic kidney disease stage IV and gout presents to the emergency department for evaluation of abdominal pain. The patient's daughter, who she lives with, provides most of the history as the patient's history is limited secondary to dementia. Per the daughter, the patient has had abdominal pain times 2 days. She has been gagging and burping with meals and has had an associated anorexia. At this time, the patient denies any abdominal pain. It is unknown if she has had any diarrhea. She has been increasingly fatigued over the past 2 days as well. The patient denies any chest pain or shortness of breath. Denies any palpitations. No nausea or vomiting. No lateralizing signs/symptoms. No fever/chills. DS: Diagnosis - Discharge Diagnosis (1) Atrial flutter with rapid ventricular response Status: Acute DS: Summary Hospital Course: Patient admitted and found to be in A. fib RVR for which she was started on Cardizem drip, this was subsequently discontinued prior to discharge and patient switched to p.o. Physical therapy was consulted. Secondary to abnormal UA she was started on Rocephin and will be discharged home on Macrobid 100 mg p.o. twice daily times 7 days. She was continued on her medications for chronic medical conditions. DVT and GI prophylaxis were provided. Prior to discharge, patient's condition improved and vitals remained stable. - Time Spent with Patient Total time spent providing and/or coordinating discharge services: Greater than 30 minutes Exam Vital signs: Vital Signs 07/05/18 11:28 07/05/18 12:00 07/05/18 13:00 Temperature 98.9 F Pulse Rate 85 79 86 Respiratory Rate 16 Blood Pressure 106/57 L Pulse Oximetry 95 07/05/18 13:57 07/05/18 15:00 07/05/18 16:00 Temperature 98.7 F Pulse Rate 89 81 81 Respiratory Rate 16 Blood Pressure 110/58 L Pulse Oximetry 92 L 07/05/18 17:00 07/05/18 18:00 07/05/18 19:00 Temperature Pulse Rate 91 H 89 95 H Respiratory Rate Blood Pressure Pulse Oximetry 07/05/18 20:00 07/05/18 20:40 07/05/18 21:00 Temperature 98.9 F Pulse Rate 90 97 H Respiratory Rate 28 H Blood Pressure 170/74 H Pulse Oximetry 94 L 07/05/18 22:00 07/05/18 23:00 07/06/18 00:00 Temperature 99.7 F H Pulse Rate 95 H 100 H 88 Respiratory Rate 28 H Blood Pressure 150/92 H Pulse Oximetry 94 L 07/06/18 01:00 07/06/18 02:00 07/06/18 03:00 Temperature Pulse Rate 97 H 73 75 Respiratory Rate Blood Pressure Pulse Oximetry 07/06/18 04:00 07/06/18 05:00 07/06/18 06:00 Temperature 98.4 F Pulse Rate 71 80 76 Respiratory Rate 28 H Blood Pressure 156/68 H Pulse Oximetry 99 07/06/18 07:00 07/06/18 08:00 07/06/18 08:54 Temperature 98.6 F Pulse Rate 77 80 Respiratory Rate 16 Blood Pressure 139/65 Pulse Oximetry 95 92 L 07/06/18 09:00 07/06/18 10:00 07/06/18 11:00 Temperature Pulse Rate 87 96 H 92 H Respiratory Rate Blood Pressure Pulse Oximetry Intake & Output 07/05/18 07/06/18 07/06/18 18:59 06:59 18:59 Intake Total 2029 / 2029 1000 / 1000 Output Total 300 / 300 400 / 400 Balance 1730 / 1730 -400 / -400 1000 / 1000 Weight 71.5 kg Intake: IV 1100 / 1100 1000 / 1000 NS Inj 1,000 ML @ 42 mls/hr IV. 1000 / 1000 1000 / 1000 CONT .[id number] [facility] Rx#:[id number] Rocephin Inj 1,000 MG In NS Inj 100 / 100 100 ML @ 200 mls/hr IV.SIG Q24H [facility] Rx#:[id number] Oral 930 / 930 Output: Urine 300 / 300 400 / 400 Other: # Incontinent Voids 1 # Urine Diapers 1 Date of Last Bowel Movement 07/05/18 07/05/18 07/06/18 # Bowel Movements 2 Narrative: Gen.: No acute distress Head: Normocephalic. Atraumatic. EENT: Pupils equal round and reactive to light. Nose without drainage. Airway intact. Throat without injection. Cardiovascular: Regular rate and rhythm. No murmurs, rubs or gallops. Respiratory: Lungs clear to auscultation bilaterally. No wheezes or rhonchi. Abdomen: Soft, nontender, nondistended. No peritoneal signs. Musculoskeletal: No gross deformities. No edema. Skin: No obvious rashes or erythema. Neuro: Sensory and motor grossly intact. Cranial nerves II through XII grossly intact. Results Procedures completed during hospitalization: none Labs on day of discharge: Labs from last 24 hours 07/05/18 07/04/18 12:45 20:45 Total Creatine Kinase 100 Troponin I 0.09 H D Urine Color Yellow Urine Clarity Cloudy H Urine pH 5.0 Ur Specific [place] 1.017 Urine Protein 500 or greater Urine Glucose (UA) Negative Urine Ketones Negative Urine Occult Blood Small H Urine Nitrate Negative Urine Bilirubin Negative Urine Urobilinogen 2.0 H Ur Leukocyte Esterase Moderate H Urine RBC 2 Urine WBC 117 H Urine WBC Clumps Few H Ur Squamous Epith Cells 1 Urine Bacteria Many H Urine Mucus Few H Micro UA Comment Cath-culture ind Urine Culture Comments Cath-cult indicated - Impressions ITS Impressions Chest X-Ray 07/04/18 18:24 CONCLUSION: 1. No acute cardiopulmonary disease. Discharge Plan - Discharge Disposition Patient Disposition: /Home Health Service - Discharge Condition Condition: Good - Discharge Order Discharge Orders: Discharge Order (Routine); Ordered 07/06/18 Ordered By: Levy Flores - Physicians Team Primary Care Provider: UNKNOWN, Attending Provider: Levy Flores
[2018-07-07] MEDS: dilTIAZem CD 300 MG Capsule PO SCH (09:00)
[2018-07-07] MEDS: Heparin - SQ 10,000 UNITS/ML Vial SQ SCH ×2 (09:00→21:37)
[2018-07-07] MEDS: Allopurinol 100 MG Tablet PO SCH (09:01)
[2018-07-07] MEDS: Sod Chloride 0.9% Inj 1,000 ML IV.CONT SCH (11:10)
[2018-07-07 12:55] LABS: Baso # (Auto) 0.1 th/mm3 (0.0-0.2); Baso % (Auto) 0.7 % (0.0-2.0); Eos # (Auto) 0.1 th/mm3 (0.0-0.4); Eos % (Auto) 1.1 % (0.0-4.0); Hematocrit 33.3 % (35.0-46.0); Hemoglobin 11.1 gm/dL (11.6-15.3); Lymph # (Auto) 1.3 th/mm3 (1.0-4.8); Mean Corpuscular HGB Conc 33.5 % (32.0-36.0); Mean Corpuscular Hemoglobin 32.3 pg (27.0-34.0); Mean Corpuscular Volume 96.6 fL (80.0-100.0); Mean Platelet Volume 9.3 fL (7.0-11.0); Mono # (Auto) 0.9 th/mm3 (0.0-0.9); Mono % (Auto) 12.4 % (0.0-8.0); Neut # (Auto) 5.1 th/mm3 (1.8-7.7); Neut % (Auto) 68.8 % (16.0-70.0); Platelet Count 145 th/mm3 (150-450); Red Blood Count 3.45 mil/mm3 (4.00-5.30); Red Cell Distribution Width 14.6 % (11.6-17.2); White Blood Count 7.4 th/mm3 (4.0-11.0)
[2018-07-07 13:20] LABS: Albumin 2.7 g/dL (3.4-5.0); Anion Gap 9 meq/L (5-15); Aspartate Aminotransferase 28 U/L (15-37); Blood Urea Nitrogen 41 mg/dL (7-18); Calcium 8.8 mg/dL (8.5-10.1); Carbon Dioxide 22.6 meq/L (21.0-32.0); Chloride 110 meq/L (98-107); Glomerular Filtration Rate 22 mL/min (>89); Glucose,Random 100 mg/dL (74-106); Potassium 3.8 meq/L (3.5-5.1); Sodium 142 meq/L (136-145)
[2018-07-07 13:22] LABS: Alanine Aminotransferase 40 U/L (10-53)
[2018-07-07 13:25] LABS: Alkaline Phosphatase 187 U/L (45-117); Total Protein 6.1 g/dL (6.4-8.2)
--- NOTE | 2018-07-07 13:41 | P.PNIM ---
Subjective Interval history: The patient was resting comfortably in bed. Her family was at the bedside. The patient stated that she did not feel like getting out of bed. She did not want to work with physical therapy. She did want to leave the hospital soon. She denied any further diarrhea. Discussed with nursing. Physical Exam Vital signs: Vital Signs 07/06/18 13:56 07/06/18 14:11 07/06/18 15:41 Temperature Pulse Rate 56 L 73 64 Respiratory Rate Blood Pressure Pulse Oximetry 07/06/18 15:45 07/06/18 17:00 07/06/18 17:22 Temperature 98.1 F Pulse Rate 64 73 82 Respiratory Rate 16 Blood Pressure 150/80 H Pulse Oximetry 96 07/06/18 19:00 07/06/18 20:00 07/06/18 21:00 Temperature Pulse Rate 80 80 86 Respiratory Rate 18 Blood Pressure 162/94 H Pulse Oximetry 92 L 07/06/18 22:00 07/06/18 23:00 07/07/18 00:00 Temperature Pulse Rate 92 H 106 H 106 H Respiratory Rate 18 Blood Pressure 157/71 H Pulse Oximetry 93 L 07/07/18 01:00 07/07/18 02:00 07/07/18 03:00 Temperature Pulse Rate 104 H 92 H 86 Respiratory Rate Blood Pressure Pulse Oximetry 07/07/18 04:00 07/07/18 05:00 07/07/18 06:00 Temperature Pulse Rate 95 H 55 L 88 Respiratory Rate Blood Pressure Pulse Oximetry 07/07/18 07:00 07/07/18 08:00 07/07/18 09:00 Temperature 98.3 F Pulse Rate 94 H 94 H 76 Respiratory Rate 16 Blood Pressure 159/75 H Pulse Oximetry 94 L 07/07/18 09:43 07/07/18 11:00 07/07/18 11:30 Temperature 98.5 F Pulse Rate 90 82 90 Respiratory Rate 17 Blood Pressure 158/93 H Pulse Oximetry 94 L 07/07/18 12:00 Temperature Pulse Rate 97 H Respiratory Rate Blood Pressure Pulse Oximetry Intake & Output 07/06/18 07/07/18 07/07/18 18:59 06:59 18:59 Intake Total 2145 / 2145 480 / 480 1200 / 1200 Output Total 800 / 800 500 / 500 Balance 1345 / 1345 -20 / -20 1200 / 1200 Weight 83 kg Intake: IV 1225 / 1225 1200 / 1200 NS Inj 1,000 ML @ 42 mls/hr IV. 1000 / 1000 1000 / 1000 CONT .[id number] [facility] Rx#:[id number] Cardizem Inj 125 MG In NS Inj 125 / 125 100 ML @ 5 MG/HR 5 mls/hr IV. CONT TITRATE PRN Rx#:[id number] Rocephin Inj 1,000 MG In NS Inj 100 / 100 100 / 100 100 ML @ 200 mls/hr IV.SIG Q24H [facility] Rx#:[id number] Flagyl 500 MG Inj 100 ML @ 100 100 / 100 mls/hr IV.SIG Q8H [facility] Rx#: [id number] Oral 920 / 920 480 / 480 Output: Urine 800 / 800 500 / 500 Other: Date of Last Bowel Movement 07/06/18 07/07/18 07/06/18 # Bowel Movements 2 3 Narrative: Gen.: No acute distress Head: Normocephalic. Atraumatic. EENT: Pupils equal round and reactive to light. Nose without drainage. Airway intact. Throat without injection. Cardiovascular: Regular rate and rhythm. No murmurs, rubs or gallops. Respiratory: Lungs clear to auscultation bilaterally. No wheezes or rhonchi. Abdomen: Soft, nontender, nondistended. No peritoneal signs. Musculoskeletal: No gross deformities. No edema. Skin: No obvious rashes or erythema. Neuro: Sensory and motor grossly intact. Cranial nerves II through XII grossly intact. Results - Labs CBC & Chem 7: 07/07/18 12:08 07/07/18 12:08 Laboratory Results - last 24 hr 07/06/18 07/07/18 07/07/18 21:54 12:08 12:08 WBC 7.4 RBC 3.45 L Hgb 11.1 L Hct 33.3 L MCV 96.6 MCH 32.3 MCHC 33.5 RDW 14.6 Plt Count 145 L MPV 9.3 Neut % (Auto) 68.8 Lymph % (Auto) 17.0 [place] % (Auto) 12.4 H Eos % (Auto) 1.1 Baso % (Auto) 0.7 Neut # (Auto) 5.1 Lymph # (Auto) 1.3 [place] # (Auto) 0.9 Eos # (Auto) 0.1 Baso # (Auto) 0.1 WBC Differential . Differential Comment Auto diff final Sodium 142 Potassium 3.8 Chloride 110 H Carbon Dioxide 22.6 Anion Gap 9 BUN 41 H Creatinine 2.14 H Estimated GFR 22 L Random Glucose 100 Calcium 8.8 Total Bilirubin 0.2 AST 28 ALT 40 Alkaline Phosphatase 187 H Total Protein 6.1 L Albumin 2.7 L Stool C.difficile Ag Positive H Stool C.difficile Toxin Negative Stl C.difficile DNA Amp Positive H St C. diff Tox Epid 027 Negative Microbiology 07/04/18 20:45 Catheterized Urine Urine Culture - Final Escherichia coli - Procedures none Assessment and Plan - Assessment (1) Atrial flutter with rapid ventricular response Code(s): I48.92 - Unspecified atrial flutter Status: Acute - Plan Atrial flutter with RVR Rate controlled at this time. S/p Cardizem gtt. -continue Cardizem PO. -Patient is not on any oral anticoagulation. -Follow-up with [facility] as outpatient. -telemetry. Elevated troponin Patient with chronic kidney disease and atrial flutter, likely contributing to elevated troponin. Denies chest pain or shortness of breath. Repeat EKG with sinus bradycardia. -follow-up with cardiology as an outpt. -telemetry. C diff Pt with diarrhea. She has had C diff before. Toxin negative, antigen positive. No further diarrhea. No leukocytosis. -continue PO vancomycin for now. -follow CBC. -would consult ID if pt remains clinically stable as treatment may not be necessary. Chronic kidney disease Improved. -Continue with gentle IV fluid hydration, avoid all nephrotoxic drug and monitor BUN and creatinine. UTI E coli in urine culture. -Currently on Rocephin. Weakness The pt is refusing to get out of bed. -PT/OT. -SNF placement. -case management following. PPx: Heparin
[2018-07-08 04:01] VITALS: O2SAT 95
[2018-07-08 06:10] LABS: Baso # (Auto) 0.1 th/mm3 (0.0-0.2); Baso % (Auto) 0.6 % (0.0-2.0); Eos # (Auto) 0.1 th/mm3 (0.0-0.4); Eos % (Auto) 1.2 % (0.0-4.0); Hematocrit 31.3 % (35.0-46.0); Hemoglobin 10.7 gm/dL (11.6-15.3); Lymph # (Auto) 1.1 th/mm3 (1.0-4.8); Mean Corpuscular HGB Conc 34.2 % (32.0-36.0); Mean Corpuscular Hemoglobin 32.3 pg (27.0-34.0); Mean Corpuscular Volume 94.6 fL (80.0-100.0); Mean Platelet Volume 9.1 fL (7.0-11.0); Mono # (Auto) 0.8 th/mm3 (0.0-0.9); Mono % (Auto) 9.3 % (0.0-8.0); Neut # (Auto) 6.3 th/mm3 (1.8-7.7); Neut % (Auto) 75.9 % (16.0-70.0); Platelet Count 158 th/mm3 (150-450); Red Blood Count 3.31 mil/mm3 (4.00-5.30); Red Cell Distribution Width 14.5 % (11.6-17.2); White Blood Count 8.3 th/mm3 (4.0-11.0)
[2018-07-08 06:42] LABS: Calcium 8.7 mg/dL (8.5-10.1); Carbon Dioxide 21.4 meq/L (21.0-32.0); Magnesium 2.1 mg/dL (1.5-2.5); Potassium 3.7 meq/L (3.5-5.1)
[2018-07-08] MEDS: dilTIAZem CD 300 MG Capsule PO SCH (08:50)
[2018-07-08] MEDS: Allopurinol 100 MG Tablet PO SCH (08:50)
[2018-07-08 09:29] VITALS: BP 178/90; RESP 18; TEMP 98.5
[2018-07-08] MEDS: Heparin - SQ 10,000 UNITS/ML Vial SQ SCH (10:13)
--- NOTE | 2018-07-08 11:23 | P.PNIM ---
Subjective Interval history: The patient was ambulating from the bathroom back to her bed. She had a formed bowel movement. She denied any discomfort. Discussed with her family who was hopeful that she would be admitted to a retirement facility. Discussed with nursing. Physical Exam Vital signs: Vital Signs 07/07/18 11:30 07/07/18 12:00 07/07/18 13:00 Temperature 98.5 F Pulse Rate 90 97 H 65 Respiratory Rate 17 Blood Pressure 158/93 H Pulse Oximetry 94 L 07/07/18 14:00 07/07/18 15:00 07/07/18 15:37 Temperature 98 F Pulse Rate 71 72 85 Respiratory Rate 16 Blood Pressure 155/79 H Pulse Oximetry 93 L 07/07/18 16:00 07/07/18 17:00 07/07/18 17:46 Temperature Pulse Rate 88 84 Respiratory Rate Blood Pressure Pulse Oximetry 93 L 07/07/18 18:00 07/07/18 19:00 07/07/18 20:00 Temperature 99.5 F Pulse Rate 78 87 91 H Respiratory Rate 16 Blood Pressure 165/86 H Pulse Oximetry 94 L 07/07/18 21:00 07/07/18 22:00 07/07/18 23:00 Temperature Pulse Rate 97 H 95 H 93 H Respiratory Rate Blood Pressure Pulse Oximetry 07/08/18 00:00 07/08/18 01:00 07/08/18 02:00 Temperature 98.3 F Pulse Rate 114 H 91 H 103 H Respiratory Rate 18 Blood Pressure 157/90 H Pulse Oximetry 94 L 07/08/18 03:00 07/08/18 04:00 07/08/18 05:00 Temperature 98.9 F Pulse Rate 85 95 H 100 H Respiratory Rate 16 Blood Pressure 169/84 H Pulse Oximetry 95 07/08/18 06:00 07/08/18 07:00 07/08/18 08:00 Temperature 98.5 F Pulse Rate 82 75 80 Respiratory Rate 18 Blood Pressure 178/90 H Pulse Oximetry 95 07/08/18 09:00 Temperature Pulse Rate 88 Respiratory Rate Blood Pressure Pulse Oximetry Intake & Output 07/07/18 07/08/18 07/08/18 18:59 06:59 18:59 Intake Total 1910 / 1910 240 / 240 Output Total 525 / 525 850 / 850 Balance 1385 / 1385 -610 / -610 Weight 83.3 kg Intake: IV 1430 / 1430 NS Inj 1,000 ML @ 42 mls/hr IV. 1230 / 1230 CONT .[id number] [facility] Rx#:[id number] Rocephin Inj 1,000 MG In NS Inj 100 / 100 100 ML @ 200 mls/hr IV.SIG Q24H [facility] Rx#:[id number] Flagyl 500 MG Inj 100 ML @ 100 100 / 100 mls/hr IV.SIG Q8H [facility] Rx#: [id number] Oral 480 / 480 240 / 240 Output: Urine 525 / 525 850 / 850 Other: Date of Last Bowel Movement 07/07/18 07/07/18 07/07/18 # Bowel Movements 2 Narrative: Gen.: No acute distress Head: Normocephalic. Atraumatic. EENT: Pupils equal round and reactive to light. Nose without drainage. Airway intact. Throat without injection. Cardiovascular: Regular rate and rhythm. No murmurs, rubs or gallops. Respiratory: Lungs clear to auscultation bilaterally. No wheezes or rhonchi. Abdomen: Soft, nontender, nondistended. No peritoneal signs. Musculoskeletal: No gross deformities. No edema. Skin: No obvious rashes or erythema. Neuro: Sensory and motor grossly intact. Cranial nerves II through XII grossly intact. Results - Labs CBC & Chem 7: 07/08/18 05:56 07/08/18 05:56 Laboratory Results - last 24 hr 07/07/18 07/07/18 07/08/18 12:08 12:08 05:56 WBC 7.4 8.3 RBC 3.45 L 3.31 L Hgb 11.1 L 10.7 L Hct 33.3 L 31.3 L MCV 96.6 94.6 MCH 32.3 32.3 MCHC 33.5 34.2 RDW 14.6 14.5 Plt Count 145 L 158 MPV 9.3 9.1 Neut % (Auto) 68.8 75.9 H Lymph % (Auto) 17.0 13.0 [place] % (Auto) 12.4 H 9.3 H Eos % (Auto) 1.1 1.2 Baso % (Auto) 0.7 0.6 Neut # (Auto) 5.1 6.3 Lymph # (Auto) 1.3 1.1 [place] # (Auto) 0.9 0.8 Eos # (Auto) 0.1 0.1 Baso # (Auto) 0.1 0.1 WBC Differential . . Differential Comment Auto diff final Auto diff final Sodium 142 Potassium 3.8 Chloride 110 H Carbon Dioxide 22.6 Anion Gap 9 BUN 41 H Creatinine 2.14 H Estimated GFR 22 L Random Glucose 100 Calcium 8.8 Magnesium Total Bilirubin 0.2 AST 28 ALT 40 Alkaline Phosphatase 187 H Total Protein 6.1 L Albumin 2.7 L 07/08/18 05:56 WBC RBC Hgb Hct MCV MCH MCHC RDW Plt Count MPV Neut % (Auto) Lymph % (Auto) [place] % (Auto) Eos % (Auto) Baso % (Auto) Neut # (Auto) Lymph # (Auto) [place] # (Auto) Eos # (Auto) Baso # (Auto) WBC Differential Differential Comment Sodium 144 Potassium 3.7 Chloride 112 H Carbon Dioxide 21.4 Anion Gap 11 BUN 37 H Creatinine 2.03 H Estimated GFR 23 L Random Glucose 105 Calcium 8.7 Magnesium 2.1 Total Bilirubin AST ALT Alkaline Phosphatase Total Protein Albumin - Procedures none Assessment and Plan - Assessment (1) Atrial flutter with rapid ventricular response Code(s): I48.92 - Unspecified atrial flutter Status: Acute - Plan Atrial flutter with RVR Rate controlled at this time. S/p Cardizem gtt. -continue Cardizem PO. -Patient is not on any oral anticoagulation. Continue ASA. -Follow-up with metal bonding assembler as outpatient. -telemetry. Elevated troponin Patient with chronic kidney disease and atrial flutter, likely contributing to elevated troponin. Denies chest pain or shortness of breath. Repeat EKG with sinus bradycardia. -follow-up with cardiology as an outpt. -telemetry. C diff Pt with diarrhea. She has had C diff before. Toxin negative, antigen positive, PCR positive. No further diarrhea. No leukocytosis. -continue PO vancomycin to complete a 10 day course. Chronic kidney disease Improved. -Continue with gentle IV fluid hydration, avoid all nephrotoxic drug and monitor BUN and creatinine. UTI E coli in urine culture. -Currently on Rocephin. D/c on Macrobid. Weakness The pt is refusing to get out of bed. -PT/OT. -SNF placement. -case management following. PPx: Heparin Discharge Planning: D/c to SNF when bed available
[2018-07-08 13:34] VITALS: PULSE 84
--- NOTE | 2018-07-08 16:29 | P.DS ---
Date of admission: 07/04/18 20:19 Primary care physician: UNKNOWN Anticipated date of discharge: 07/08/18 Brief History from admission: 88-year-old female with a past medical history significant for atrial fibrillation anticoagulated on aspirin, history of TIA, hypertension, hyperlipidemia, chronic kidney disease stage IV and gout presents to the emergency department for evaluation of abdominal pain. The patient's daughter, who she lives with, provides most of the history as the patient's history is limited secondary to dementia. Per the daughter, the patient has had abdominal pain times 2 days. She has been gagging and burping with meals and has had an associated anorexia. At this time, the patient denies any abdominal pain. It is unknown if she has had any diarrhea. She has been increasingly fatigued over the past 2 days as well. The patient denies any chest pain or shortness of breath. Denies any palpitations. No nausea or vomiting. No lateralizing signs/symptoms. No fever/chills. Patient update on day of discharge: Doing well, having formed bowel movements, stable for discharge. DS: Diagnosis - Discharge Diagnosis (1) Atrial flutter with rapid ventricular response Status: Acute DS: Medications - Discharge Medications Prescriptions: nitrofurantoin monohyd/m-cryst [Macrobid] 100 mg PO BID #4 cap vancomycin 125 mg PO QID 7 Days each DS: Summary Hospital Course: Patient admitted and found to be in A. fib RVR for which she was started on Cardizem drip, this was subsequently discontinued prior to discharge and patient switched to p.o. Physical therapy was consulted. Secondary to abnormal UA she was started on Rocephin and will be discharged home on Macrobid 100 mg p.o. twice daily. She was continued on her medications for chronic medical conditions. DVT and GI prophylaxis were provided. Prior to discharge, patient's condition improved and vitals remained stable. She was found to have C diff and was started on PO vancomycin. She will complete a course and follow up with her PCP. - Time Spent with Patient Total time spent providing and/or coordinating discharge services: Greater than 30 minutes Exam Vital signs: Vital Signs 07/07/18 17:00 07/07/18 17:46 07/07/18 18:00 Temperature Pulse Rate 84 78 Respiratory Rate Blood Pressure Pulse Oximetry 93 L 07/07/18 19:00 07/07/18 20:00 07/07/18 21:00 Temperature 99.5 F Pulse Rate 87 91 H 97 H Respiratory Rate 16 Blood Pressure 165/86 H Pulse Oximetry 94 L 07/07/18 22:00 07/07/18 23:00 07/08/18 00:00 Temperature 98.3 F Pulse Rate 95 H 93 H 114 H Respiratory Rate 18 Blood Pressure 157/90 H Pulse Oximetry 94 L 07/08/18 01:00 07/08/18 02:00 07/08/18 03:00 Temperature Pulse Rate 91 H 103 H 85 Respiratory Rate Blood Pressure Pulse Oximetry 07/08/18 04:00 07/08/18 05:00 07/08/18 06:00 Temperature 98.9 F Pulse Rate 95 H 100 H 82 Respiratory Rate 16 Blood Pressure 169/84 H Pulse Oximetry 95 07/08/18 07:00 07/08/18 08:00 07/08/18 09:00 Temperature 98.5 F Pulse Rate 75 80 88 Respiratory Rate 18 Blood Pressure 178/90 H Pulse Oximetry 95 07/08/18 10:00 07/08/18 11:00 Temperature Pulse Rate 86 84 Respiratory Rate Blood Pressure Pulse Oximetry Intake & Output 07/07/18 07/08/18 07/08/18 18:59 06:59 18:59 Intake Total 1910 / 1910 240 / 240 Output Total 525 / 525 850 / 850 Balance 1385 / 1385 -610 / -610 Weight 83.3 kg Intake: IV 1430 / 1430 NS Inj 1,000 ML @ 42 mls/hr IV. 1230 / 1230 CONT .[id number] [facility] Rx#:[id number] Rocephin Inj 1,000 MG In NS Inj 100 / 100 100 ML @ 200 mls/hr IV.SIG Q24H [facility] Rx#:[id number] Flagyl 500 MG Inj 100 ML @ 100 100 / 100 mls/hr IV.SIG Q8H [facility] Rx#: [id number] Oral 480 / 480 240 / 240 Output: Urine 525 / 525 850 / 850 Other: Date of Last Bowel Movement 07/07/18 07/07/18 07/07/18 # Bowel Movements 2 Narrative: Gen.: No acute distress Head: Normocephalic. Atraumatic. EENT: Pupils equal round and reactive to light. Nose without drainage. Airway intact. Throat without injection. Cardiovascular: Regular rate and rhythm. No murmurs, rubs or gallops. Respiratory: Lungs clear to auscultation bilaterally. No wheezes or rhonchi. Abdomen: Soft, nontender, nondistended. No peritoneal signs. Musculoskeletal: No gross deformities. No edema. Skin: No obvious rashes or erythema. Neuro: Sensory and motor grossly intact. Cranial nerves II through XII grossly intact. Results Procedures completed during hospitalization: none Labs on day of discharge: Labs from last 24 hours 07/08/18 07/08/18 05:56 05:56 WBC 8.3 RBC 3.31 L Hgb 10.7 L Hct 31.3 L MCV 94.6 MCH 32.3 MCHC 34.2 RDW 14.5 Plt Count 158 MPV 9.1 Neut % (Auto) 75.9 H Lymph % (Auto) 13.0 [place] % (Auto) 9.3 H Eos % (Auto) 1.2 Baso % (Auto) 0.6 Neut # (Auto) 6.3 Lymph # (Auto) 1.1 [place] # (Auto) 0.8 Eos # (Auto) 0.1 Baso # (Auto) 0.1 WBC Differential . Differential Comment Auto diff final Sodium 144 Potassium 3.7 Chloride 112 H Carbon Dioxide 21.4 Anion Gap 11 BUN 37 H Creatinine 2.03 H Estimated GFR 23 L Random Glucose 105 Calcium 8.7 Magnesium 2.1 - Impressions ITS Impressions Chest X-Ray 07/04/18 18:24 CONCLUSION: 1. No acute cardiopulmonary disease. Discharge Plan - Discharge Disposition Patient Disposition: Discharge to SNF - Discharge Condition Condition: Stable - Discharge Order Discharge Orders: Discharge Order (Routine); Ordered 07/08/18 Ordered By: Nii Burris - Physicians Team Primary Care Provider: UNKNOWN, Attending Provider: Nii Burris Other Providers: [facility],[place]
== END 2018-07-08 13:50 | DRG 309 ==
LOC: NEPC 17:41 → NEDA 20:19 → HCPC 23:29 → HCIS 07-06 10:26
PROVIDERS: ADMIT Hospitalist; ATTEND Hospitalist
CPT/HCPCS: 71010; 71045; 76937; 80048; 80053; 81001; 82550; 82552; 83520; 83690; 83735; 83880; 84484; 85025; 85610; 85730; 87077; 87086; 87186; 87324; 87449; 87493; 90765; 90775; 93005; 96365; 96375; 97110; 97162; 97167; 99285; J0696; J1644; J2405; J7030